=== PATIENT | female | born 1950 | race Hispanic/Latino ===

== ENCOUNTER 2017-08-07 22:52 | Emergency (ER) | payer MEDICARE, OTHER ==
[2017-08-07] MEDS ORDERED: ACETAMINOPHEN EXTRA STRENGTH 500 MG TABLET ONE (23:45)
== END 2017-08-07 23:53 | disposition home or self-care (01) ==
LOC: EDH 22:52
DX: S93.401A Sprain of unspecified ligament of right ankle, initial encounter (principal); E11.9 Type 2 diabetes mellitus without complications; I10 Essential (primary) hypertension; E78.5 Hyperlipidemia, unspecified; Z98.51 Tubal ligation status; Z90.49 Acquired absence of other specified parts of digestive tract
CPT/HCPCS: 73610

== ENCOUNTER 2018-06-03 21:08 | Emergency (ER) | payer MEDICARE, OTHER ==
[2018-06-03] MEDS ORDERED: TRAMADOL HCL 50 MG TABLET ONE (22:03)
== END 2018-06-03 23:49 | disposition home or self-care (01) ==
LOC: EDH 21:08
DX: S20.211A Contusion of right front wall of thorax, initial encounter (principal); E11.9 Type 2 diabetes mellitus without complications; I10 Essential (primary) hypertension; E78.5 Hyperlipidemia, unspecified; Z98.51 Tubal ligation status; Z90.49 Acquired absence of other specified parts of digestive tract; Z98.890 Other specified postprocedural states; X58.XXXA Exposure to other specified factors, initial encounter; Y93.89 Activity, other specified; Y92.89 Other specified places as the place of occurrence of the external cause; Y99.8 Other external cause status
CPT/HCPCS: 71045; 71100; 93005; 99291

== ENCOUNTER → 2018-12-13 | Outpatient (CLI) | payer MEDICARE, OTHER | END | disposition home or self-care (01) | LOC: RAH 13:26 | PROVIDERS: ATTEND Family Medicine | DX: Z12.31 Encounter for screening mammogram for malignant neoplasm of breast (principal) | CPT/HCPCS: 77067 ==

== ENCOUNTER 2019-07-30 20:04 | Emergency (ER) | payer MEDICARE, OTHER ==
[2019-07-30] MEDS ORDERED: ACETAMINOPHEN 325 MG TAB ONE (20:48)
== END 2019-07-30 21:20 | disposition home or self-care (01) ==
LOC: EDH 20:04
DX: S63.592A Other specified sprain of left wrist, initial encounter (principal); E11.9 Type 2 diabetes mellitus without complications; E78.5 Hyperlipidemia, unspecified; I10 Essential (primary) hypertension; Z90.49 Acquired absence of other specified parts of digestive tract; Z98.890 Other specified postprocedural states; V49.49XA Driver injured in collision with other motor vehicles in traffic accident, initial encounter; Y93.89 Activity, other specified; Y92.89 Other specified places as the place of occurrence of the external cause; Y99.8 Other external cause status
CPT/HCPCS: 71046; 73110

== ENCOUNTER 2020-03-02 12:22 | Emergency (ER) | payer MEDICARE ==
[2020-03-02] MEDS ORDERED: SODIUM CHLORIDE 0.9% 1000ML 1,000 ML IV ONE (12:23)
[2020-03-02] MEDS ORDERED: ONDANSETRON HCL 4 MG/2 ML VIAL ONE (12:45)
[2020-03-02 12:56] LABS: BASOPHILS % (AUTO) 0.6 % (0.0-5.0); EOSINOPHILS % (AUTO) 1.8 % (0.0-8.0); HEMATOCRIT 38.7 % (36-48); LYMPHOCYTES % (AUTO) 23.7 % (21.0-51.0); MEAN CORPUSCULAR HEMOGLOBIN 30.9 pg (27.0-33.0); MEAN CORPUSCULAR HGB CONC 33.6 g/dL (32.0-36.0); MEAN CORPUSCULAR VOLUME 91.9 fL (79-99); MONOCYTES % (AUTO) 6.5 % (3.0-13.0); NEUTROPHILS % (AUTO) 67.2 % (40.0-77.0); PLATELET COUNT (AUTO) 121 K/uL (130-400); RED BLOOD CELL COUNT(AUTO) 4.21 MIL/uL (4.00-5.50); WHITE BLOOD COUNT (AUTO) 5.1 K/uL (4.8-10.8)
[2020-03-02 13:22] LABS: ALBUMIN 3.6 g/dL (3.5-5.0); BILIRUBIN,TOTAL 0.4 mg/dL (0.2-1.0); CREATININE 0.4 mg/dL (0.5-1.5); POTASSIUM 4.2 mmol/L (3.5-5.1); TOTAL PROTEIN, SERUM 6.6 g/dL (6.0-8.3)
[2020-03-02 13:37] LABS: INR 0.91 (0.85-1.15); PARTIAL THROMBOPLASTIN TIME 25.2 SEC (26.3-35.5); PROTHROMBIN TIME 9.9 SEC (9.6-11.6)
[2020-03-02] MEDS ORDERED: HYOSCYAMINE SULFATE 0.125 MG TAB.SUBL SL ONE (14:53)
[2020-03-02] MEDS ORDERED: FAMOTIDINE/PF 20 MG/2 ML VIAL IV ONE (14:54)
[2020-03-02 17:10] LABS: APPEARANCE,URINE Clear (CLEAR); BILIRUBIN,URINE Negative (NEGATIVE); COLOR,URINE Yellow (YELLOW); GLUCOSE, URINE (UA) >=1000 mg/dL (NEGATIVE); KETONES,URINE Trace mg/dL (NEGATIVE); LEUKOCYTE ESTERASE ,URINE Negative (NEGATIVE); NITRATE,URINE Negative (NEGATIVE); OCCULT BLOOD,URINE Negative (NEGATIVE); PH,URINE 5.5 (5.0-8.0); PROTEIN,URINE Negative (NEGATIVE); UROBILINOGEN,URINE 0.2 mg/dL (0.2-1.0)
[2020-03-02 17:17] LABS: BACTERIA,URINE Rare /HPF (None Seen); RBC,URINE 0-1 /HPF (0-1); SQUAMOUS EPITHELIAL CELL,UR Rare /HPF (0-2); WBC,URINE 0-1 /HPF (0-1); YEAST,URINE BUDDING Few /HPF (None Seen)
== END 2020-03-02 16:20 | disposition home or self-care (01) ==
LOC: EDH 12:22
DX: R11.0 Nausea (principal); E11.9 Type 2 diabetes mellitus without complications; E78.5 Hyperlipidemia, unspecified; I10 Essential (primary) hypertension; Z90.49 Acquired absence of other specified parts of digestive tract; Z98.890 Other specified postprocedural states
CPT/HCPCS: 36415; 71045; 80053; 81001; 82550; 83690; 84484 ×2; 85025; 85610; 85730; 93005 ×2; 96374; 96375; 99285; J2405; J3490; J7030

== ENCOUNTER 2021-06-01 00:48 | Inpatient (IN) | payer MEDICARE ==
[~2021-06-01] VITALS: Ht 160 cm; Wt 43.5 kg
[2021-06-01 01:16] LABS: APPEARANCE,URINE Clear (CLEAR); BILIRUBIN,URINE Negative (NEGATIVE); COLOR,URINE Yellow (YELLOW); GLUCOSE, URINE (UA) >=1000 mg/dL (NEGATIVE); KETONES,URINE Negative (NEGATIVE); LEUKOCYTE ESTERASE ,URINE Negative (NEGATIVE); NITRATE,URINE Negative (NEGATIVE); OCCULT BLOOD,URINE Negative (NEGATIVE); PH,URINE 6.5 (5.0-8.0); PROTEIN,URINE Negative (NEGATIVE); UROBILINOGEN,URINE 0.2 mg/dL (0.2-1.0)
[2021-06-01 01:26] LABS: BACTERIA,URINE Rare /HPF (None Seen); RBC,URINE 0-1 /HPF (0-1); SQUAMOUS EPITHELIAL CELL,UR 0-2 /HPF (0-2); WBC,URINE None Seen /HPF (0-1)
[2021-06-01] MEDS ORDERED: DILTIAZEM 125 MG/25 ML INJ 125 MG in 0.9%NACL 100ML 100 ML IV SCH (01:30)
[2021-06-01] MEDS ORDERED: LACTATED RINGERS 1000ML 1,000 ML IV ONE (01:30)
[2021-06-01] MEDS ORDERED: DILTIAZEM 50MG VIAL IV ONE (01:36)
[2021-06-01] MEDS ORDERED: 0.9% NACL 500ML IV.SOLN 500 ML IV ONE ×2 (01:37→03:51)
[2021-06-01 01:38] LABS: BASOPHILS % (AUTO) 0.6 % (0.0-5.0); HEMATOCRIT 41.8 % (36-48); LYMPHOCYTES % (AUTO) 18.6 % (21.0-51.0); MEAN CORPUSCULAR HEMOGLOBIN 31.3 pg (27.0-33.0); MEAN CORPUSCULAR HGB CONC 33.5 g/dL (32.0-36.0); MEAN CORPUSCULAR VOLUME 93.3 fL (79-99); MONOCYTES % (AUTO) 6.2 % (3.0-13.0); NEUTROPHILS % (AUTO) 73.5 % (40.0-77.0); PLATELET COUNT (AUTO) 166 K/uL (130-400); RED BLOOD CELL COUNT(AUTO) 4.48 MIL/uL (4.00-5.50); RED CELL DISTRIBUTION WIDTH 12.5 % (11.0-15.5); WHITE BLOOD COUNT (AUTO) 8.2 K/uL (4.8-10.8)
[2021-06-01 01:58] LABS: CREATININE 0.6 mg/dL (0.5-1.5); POTASSIUM 4.5 mmol/L (3.5-5.1)
[2021-06-01 02:10] LABS: ALBUMIN 3.8 g/dL (3.5-5.0); BILIRUBIN,TOTAL 0.5 mg/dL (0.2-1.0); TOTAL PROTEIN, SERUM 7.8 g/dL (6.0-8.3)
[2021-06-01 02:18] LABS: PHOSPHORUS 6.6 mg/dL (2.5-4.9); THYROID STIMULATING HORMONE 4.36 uIU/mL (0.36-3.74)
[2021-06-01 02:26] LABS: INR 0.99 (0.85-1.15); PROTHROMBIN TIME 10.8 SEC (9.6-11.6)
[2021-06-01 02:28] LABS: PARTIAL THROMBOPLASTIN TIME 21.6 SEC (26.3-35.5)
[2021-06-01] MEDS ORDERED: AMIODARONE 150MG VIAL ONE ×2 (03:56→04:06)
[2021-06-01] MEDS ORDERED: ACETAMINOPHEN 325 MG TAB PO PRN ×2 (04:30)
[2021-06-01] MEDS ORDERED: ONDANSETRON 4MG TABLET PO PRN (04:30)
[2021-06-01] MEDS ORDERED: AMIODARONE 900MG VIAL 900 MG in DEXTROSE 5%-WATER 500 ML IV SCH (04:30)
[2021-06-01 06:36] VITALS: BP 97/59
[2021-06-01 06:40] LABS: MEAN CORPUSCULAR HEMOGLOBIN 30.6 pg (27.0-33.0); MEAN CORPUSCULAR HGB CONC 32.9 g/dL (32.0-36.0); MEAN CORPUSCULAR VOLUME 93.1 fL (79-99); RED BLOOD CELL COUNT(AUTO) 4.08 MIL/uL (4.00-5.50); RED CELL DISTRIBUTION WIDTH 12.5 % (11.0-15.5); WHITE BLOOD COUNT (AUTO) 7.1 K/uL (4.8-10.8)
[2021-06-01 07:02] LABS: CREATININE 0.5 mg/dL (0.5-1.5); MAGNESIUM 1.7 mg/dL (1.80-2.40); POTASSIUM 3.7 mmol/L (3.5-5.1)
[2021-06-01 08:57] VITALS: BP 92/59
[2021-06-01] MEDS: ENOXAPARIN SODIUM 30 MG/0.3 ML SQ SCH (09:01)
[2021-06-01 12:40] VITALS: BP 136/73
[2021-06-01 16:53] VITALS: BP 108/63
[2021-06-01] MEDS ORDERED: DEXTROSE 50%-WATER 50 ML DISP.SYRIN IV PRN (18:30)
[2021-06-01] MEDS ORDERED: GLUCAGON 1MG KIT 1 MG ML IM PRN (18:30)
[2021-06-01] MEDS ORDERED: [UNRECOGNIZED DRUG - REMARK] MISC SCH (19:00)
[2021-06-01 19:48] VITALS: BP 148/69
[2021-06-01] MEDS: METOPROLOL TARTRATE 25 MG TAB PO SCH (20:49)
[2021-06-01] MEDS: INSULIN HUMULIN R 100 UNIT/ML 3ML SQ SCH (20:56)
[2021-06-01] MEDS ORDERED: APIXABAN 5 MG TABLET PO SCH (21:00)
[2021-06-02 00:13] VITALS: BP 107/56
[2021-06-02 04:05] VITALS: BP 102/62
[2021-06-02 04:36] LABS: MEAN CORPUSCULAR HEMOGLOBIN 30.9 pg (27.0-33.0); MEAN CORPUSCULAR HGB CONC 33.2 g/dL (32.0-36.0); MEAN CORPUSCULAR VOLUME 92.9 fL (79-99); RED BLOOD CELL COUNT(AUTO) 3.66 MIL/uL (4.00-5.50); RED CELL DISTRIBUTION WIDTH 12.4 % (11.0-15.5); WHITE BLOOD COUNT (AUTO) 6.1 K/uL (4.8-10.8)
[2021-06-02 05:02] LABS: ALBUMIN 2.9 g/dL (3.5-5.0); BILIRUBIN,DIRECT 0.1 mg/dL (0.0-0.3); BILIRUBIN,TOTAL 0.2 mg/dL (0.2-1.0); CREATININE 0.5 mg/dL (0.5-1.5); POTASSIUM 3.1 mmol/L (3.5-5.1)
[2021-06-02 05:25] LABS: THYROID STIMULATING HORMONE 1.19 uIU/mL (0.36-3.74)
[2021-06-02] MEDS: INSULIN HUMULIN R 100 UNIT/ML 3ML SQ SCH ×4 (07:30→19:59)
[2021-06-02] MEDS ORDERED: POTASSIUM CHLORIDE 20MEQ/100ML 100 ML IV PRN (08:00)
[2021-06-02] MEDS ORDERED: POTASSIUM CHLORIDE 10% ELIXIR 20 MEQ/15 ML UDCUP PO PRN (08:00)
[2021-06-02 08:30] VITALS: BP 113/60
[2021-06-02] MEDS: KCL 20 MEQ ERTAB PO PRN ×3 (09:10→18:21)
[2021-06-02] MEDS: AMIODARONE 200 MG TABLET PO SCH ×2 (09:10→19:38)
[2021-06-02] MEDS: ENOXAPARIN SODIUM 30 MG/0.3 ML SQ SCH (09:10)
[2021-06-02] MEDS: METOPROLOL TARTRATE 25 MG TAB PO SCH ×2 (09:11→19:38)
[2021-06-02] MEDS: APIXABAN 5 MG TABLET PO SCH ×2 (10:23→19:38)
[2021-06-02] MEDS ORDERED: APIXABAN 5 MG TABLET PO ONE (10:30)
[2021-06-02 12:49] VITALS: BP 132/70
[2021-06-02 16:30] VITALS: BP 126/72
[2021-06-02 20:00] VITALS: BP 143/70
[2021-06-03] VITALS: BP 130/70
[2021-06-03 04:00] VITALS: BP 105/61
[2021-06-03 04:08] LABS: HEMATOCRIT 36.4 % (36-48); MEAN CORPUSCULAR HEMOGLOBIN 30.5 pg (27.0-33.0); MEAN CORPUSCULAR HGB CONC 33.5 g/dL (32.0-36.0); RED CELL DISTRIBUTION WIDTH 12.3 % (11.0-15.5); WHITE BLOOD COUNT (AUTO) 5.4 K/uL (4.8-10.8)
[2021-06-03 04:20] LABS: CREATININE 0.4 mg/dL (0.5-1.5); MAGNESIUM 1.8 mg/dL (1.80-2.40); POTASSIUM 3.9 mmol/L (3.5-5.1)
[2021-06-03] MEDS: INSULIN HUMULIN R 100 UNIT/ML 3ML SQ SCH ×2 (06:09→11:21)
[2021-06-03] MEDS: APIXABAN 5 MG TABLET PO SCH (07:52)
[2021-06-03] MEDS: METOPROLOL TARTRATE 25 MG TAB PO SCH (07:52)
[2021-06-03] MEDS: AMIODARONE 200 MG TABLET PO SCH (07:52)
[2021-06-03 08:00] VITALS: BP 125/67
[2021-06-03] MEDS ORDERED: AEC81 PO (09:37)
[2021-06-03] MEDS ORDERED: PIOG30TA70 PO (09:37)
[2021-06-03] MEDS ORDERED: METF-526 PO (09:37)
[2021-06-03] MEDS ORDERED: ROSU40TA21 PO (09:37)
[2021-06-03] MEDS ORDERED: LISI40TA9 PO (09:37)
[2021-06-03 11:30] VITALS: BP 119/68
== END 2021-06-03 14:10 | disposition home or self-care (01) | DRG 310 ==
LOC: EDH 00:48 → EDHIP 03:41 → 4DH 05:50
PROVIDERS: ADMIT Internal Medicine Infectious Disease; ATTEND Internal Medicine Infectious Disease
PROC: B246ZZZ Ultrasonography of Right and Left Heart (ICD-10-PCS; principal; 2021-06-02)
DX: I48.19 Other persistent atrial fibrillation (principal); H53.2 Diplopia; M10.9 Gout, unspecified; I10 Essential (primary) hypertension; E10.65 Type 1 diabetes mellitus with hyperglycemia; I95.9 Hypotension, unspecified; G51.0 Bell's palsy; R53.81 Other malaise; E78.5 Hyperlipidemia, unspecified; Z79.82 Long term (current) use of aspirin; Z79.4 Long term (current) use of insulin; Z90.49 Acquired absence of other specified parts of digestive tract; Z83.3 Family history of diabetes mellitus
CPT/HCPCS: 36415; 70450; 70551; 71045; 80048; 80053; 80061; 80076; 81001; 82550; 82948; 83036; 83605; 83690; 83735; 83880; 84100; 84439; 84443; 84484; 85025; 85027; 85610; 85730; 93005; 93306; 93880; 99291; G0378; J0282; J1650; J1815; J3490; J7040; J7060

== ENCOUNTER 2022-06-13 12:53 | Emergency (ER) | payer MEDICARE ==
[~2022-06-13] VITALS: Ht 157.5 cm; Wt 54.4 kg
[~2022-06-13 12:53] MED LIST: AEC81 PO; METF-526 PO; PIOG30TA70 PO
[2022-06-13 12:56] VITALS: BP 95/75
[2022-06-13] MEDS ORDERED: BENZ-39 PO (14:24)
[2022-06-13] MEDS ORDERED: MOLN200C PO (14:24)
== END 2022-06-13 14:43 | disposition home or self-care (01) ==
LOC: EDH 12:53
DX: U07.1 COVID-19 (principal); I10 Essential (primary) hypertension; E10.9 Type 1 diabetes mellitus without complications; Z79.82 Long term (current) use of aspirin; Z79.84 Long term (current) use of oral hypoglycemic drugs; Z79.899 Other long term (current) drug therapy; Z98.890 Other specified postprocedural states
CPT/HCPCS: 99283; 87635; 87880; 87804 ×2; C9803

== ENCOUNTER 2022-06-30 19:03 | Observation (INO) | payer MEDICARE ==
[~2022-06-30] VITALS: Ht 152.4 cm; Wt 46.7 kg
[~2022-06-30 19:03] MED LIST changes: +BENZ-39 PO; +MOLN200C PO
[2022-06-30 20:05] LABS: HEMATOCRIT 38.4 % (36-48); MEAN CORPUSCULAR HEMOGLOBIN 29.7 pg (27.0-33.0); MEAN CORPUSCULAR HGB CONC 32.8 g/dL (32.0-36.0); MEAN CORPUSCULAR VOLUME 90.6 fL (79-99); PLATELET COUNT (AUTO) 157 K/uL (130-400); RED BLOOD CELL COUNT(AUTO) 4.24 MIL/uL (4.00-5.50); RED CELL DISTRIBUTION WIDTH 12.9 % (11.0-15.5); WHITE BLOOD COUNT (AUTO) 6.1 K/uL (4.8-10.8)
[2022-06-30 20:16] LABS: APPEARANCE,URINE CLEAR (CLEAR); BILIRUBIN,URINE NEGATIVE (NEGATIVE); COLOR,URINE LIGHT-YELLOW (YELLOW); GLUCOSE, URINE (UA) >=1000 mg/dL (NEGATIVE); KETONES,URINE NEGATIVE (NEGATIVE); LEUKOCYTE ESTERASE ,URINE NEGATIVE Leu/uL (NEGATIVE); NITRATE,URINE NEGATIVE (NEGATIVE); OCCULT BLOOD,URINE NEGATIVE (NEGATIVE); PH,URINE 6.5 (5.0-8.0); PROTEIN,URINE NEGATIVE (NEGATIVE); UROBILINOGEN,URINE 0.2 mg/dL (0.2-1.0)
[2022-06-30 20:16] LABS: POTASSIUM 3.8 mmol/L (3.5-5.1)
[2022-06-30 20:17] LABS: BACTERIA,URINE RARE /HPF (None Seen); RBC,URINE 0-1 /HPF (0-1); SQUAMOUS EPITHELIAL CELL,UR RARE /HPF (0-2); WBC,URINE 0-1 /HPF (0-1)
[2022-06-30 20:21] LABS: ALBUMIN 3.4 g/dL (3.5-5.0); BASOPHILS % (AUTO) 0.7 % (0.0-5.0); LYMPHOCYTES % (AUTO) 24.8 % (21.0-51.0); MONOCYTES % (AUTO) 8.8 % (3.0-13.0); NEUTROPHILS % (AUTO) 63.5 % (40.0-77.0)
[2022-06-30] MEDS ORDERED: LACTATED RINGERS 1000ML 1,000 ML IV SCH (22:00)
[2022-06-30] MEDS ORDERED: ONDANSETRON 4MG INJ IVP PRN (22:00)
[2022-06-30] MEDS ORDERED: ACETAMINOPHEN 650 MG SUPPOSITORY RC PRN (22:00)
[2022-06-30] MEDS ORDERED: ACETAMINOPHEN 325 MG TAB PO PRN (22:00)
[2022-07-01] MEDS: INSULIN HUMULIN R 100 UNIT/ML 3ML SQ SCH ×4 (06:56→21:00)
[2022-07-01 08:38] VITALS: BP 141/68
[2022-07-01] MEDS: ASPIRIN 81MG CHEW TAB PO SCH (08:49)
[2022-07-01 08:53] LABS: HEMATOCRIT 35.5 % (36-48); MEAN CORPUSCULAR HEMOGLOBIN 30.1 pg (27.0-33.0); MEAN CORPUSCULAR HGB CONC 32.4 g/dL (32.0-36.0); MEAN CORPUSCULAR VOLUME 92.9 fL (79-99); RED BLOOD CELL COUNT(AUTO) 3.82 MIL/uL (4.00-5.50); WHITE BLOOD COUNT (AUTO) 5.6 K/uL (4.8-10.8)
[2022-07-01] MEDS ORDERED: ENOXAPARIN SODIUM 30 MG/0.3 ML SQ SCH (09:00)
[2022-07-01 09:08] LABS: CHOLESTEROL 168 mg/dL (<200); HDL CHOLESTEROL 59 mg/dL (35-85); LDL DIRECT 95 mg/dL (0-99); TRIGLYCERIDES 93 mg/dL (30-200)
[2022-07-01 09:23] LABS: CREATININE 0.5 mg/dL (0.5-1.5); MAGNESIUM 1.8 mg/dL (1.80-2.40); PHOSPHORUS 4.1 mg/dL (2.5-4.9); THYROID STIMULATING HORMONE 1.36 uIU/mL (0.36-3.74)
[2022-07-01 12:35] VITALS: BP 143/67
[2022-07-01] MEDS ORDERED: INSU100I3 SQ (13:56)
[2022-07-01] MEDS ORDERED: ROSU40TA21 PO (13:56)
[2022-07-01] MEDS ORDERED: APIX5TAB PO (13:56)
[2022-07-01] MEDS ORDERED: INSU100I47 SQ (13:56)
[2022-07-01] MEDS ORDERED: INSU100I24 SQ (13:56)
[2022-07-01] MEDS ORDERED: LISI5TAB21 PO (13:56)
[2022-07-01] MEDS ORDERED: EMPA25TA PO (13:56)
[2022-07-01] MEDS ORDERED: METO25 PO (13:56)
[2022-07-01] MEDS ORDERED: PHARMACY COMMUNICATION MISC SCH ×3 (15:30→16:30)
[2022-07-01 15:50] LABS: HEMOGLOBIN A1C 8.7 % (4.0-6.0)
[2022-07-01 16:30] VITALS: BP 147/70
[2022-07-01] MEDS ORDERED: IOHEXOL 350 MG/ML 100ML INFUS..BTL IV ONE (19:07)
[2022-07-01 19:21] VITALS: BP 155/69
[2022-07-01] MEDS ORDERED: SIMVASTATIN 20 MG TABLET PO SCH (21:00)
[2022-07-01] MEDS: METOPROLOL TARTRATE 25 MG TAB PO SCH (22:34)
[2022-07-02 00:21] VITALS: BP 139/61
[2022-07-02 03:21] VITALS: BP 106/59
[2022-07-02] MEDS: INSULIN HUMULIN R 100 UNIT/ML 3ML SQ SCH ×2 (07:30→11:30)
[2022-07-02] MEDS: ASPIRIN 81MG CHEW TAB PO SCH (07:47)
[2022-07-02] MEDS: METOPROLOL TARTRATE 25 MG TAB PO SCH (07:48)
[2022-07-02 08:00] VITALS: BP 126/61
[2022-07-02] MEDS ORDERED: ROSUVASTATIN CALCIUM 40 MG PO SCH (09:00)
[2022-07-02] MEDS ORDERED: LISINOPRIL 5 MG TABLET PO SCH (09:00)
[2022-07-02] MEDS ORDERED: EMPAGLIFLOZIN 25MG TABLET PO SCH ×2 (09:00)
[2022-07-02] MEDS ORDERED: APIXABAN 5 MG TABLET PO SCH (09:00)
[2022-07-02] MEDS ORDERED: INSU100V37 SQ (11:58)
[2022-07-02 12:00] VITALS: BP 140/61
== END 2022-07-02 13:14 | disposition home or self-care (01) ==
LOC: EDH 19:03 → EDHIP 21:34 → 2AH 07-01 05:50
PROVIDERS: ADMIT Internal Medicine Pulmonary Disease; ATTEND Internal Medicine Pulmonary Disease
DX: E11.649 Type 2 diabetes mellitus with hypoglycemia without coma (principal); I10 Essential (primary) hypertension; I48.91 Unspecified atrial fibrillation; I24.9 Acute ischemic heart disease, unspecified; E88.09 Other disorders of plasma-protein metabolism, not elsewhere classified; Z79.82 Long term (current) use of aspirin; Z79.01 Long term (current) use of anticoagulants; Z79.4 Long term (current) use of insulin; Z79.899 Other long term (current) drug therapy
CPT/HCPCS: 99285; 82550 ×3; 83874 ×3; 84484 ×4; 80053; 85025; 82948 ×8; 81001; 36415 ×2; 71045; 93880; 93005; 96372; 96360; 96361; 83036; 84443; 83735; 84100; 80061; 80048; 83880; 85027; 85378; 71270; 74178; 93306; 97161; G0378 ×38; J1815 ×2; J7120; J1650; Q9967

== ENCOUNTER 2022-07-30 10:37 | Emergency (ER) | payer MEDICARE ==
[~2022-07-30] VITALS: Ht 152.4 cm; Wt 45.4 kg
[~2022-07-30 10:37] MED LIST changes: -AEC81 PO; +APIX5TAB PO; -BENZ-39 PO; +EMPA25TA PO; +INSU100V37 SQ; +LISI5TAB21 PO; -METF-526 PO; +METO25 PO; -MOLN200C PO; -PIOG30TA70 PO; +ROSU40TA21 PO
[2022-07-30] MEDS ORDERED: CYCL10TA16 PO (12:30)
[2022-07-30] MEDS ORDERED: IBUPROFEN 600 MG TABLET PO SCH (12:30)
[2022-07-30 12:34] VITALS: BP 148/66
== END 2022-07-30 12:45 | disposition home or self-care (01) ==
LOC: EDH 10:37
DX: R07.81 Pleurodynia (principal); E11.9 Type 2 diabetes mellitus without complications; I10 Essential (primary) hypertension; Z79.899 Other long term (current) drug therapy; Z90.49 Acquired absence of other specified parts of digestive tract; Z79.84 Long term (current) use of oral hypoglycemic drugs; W18.39XA Other fall on same level, initial encounter; Y93.01 Activity, walking, marching and hiking; Y92.89 Other specified places as the place of occurrence of the external cause; Y99.8 Other external cause status
CPT/HCPCS: 71100

== ENCOUNTER 2022-09-09 18:16 | Emergency (ER) | payer MEDICARE ==
[~2022-09-09] VITALS: Ht 152.4 cm; Wt 51.7 kg
[~2022-09-09 18:16] MED LIST changes: +CYCL10TA16 PO
[2022-09-09 21:09] VITALS: BP 115/68
== END 2022-09-09 21:14 | disposition home or self-care (01) ==
LOC: EDH 18:16
DX: J02.9 Acute pharyngitis, unspecified (principal); E11.9 Type 2 diabetes mellitus without complications; I10 Essential (primary) hypertension; E78.00 Pure hypercholesterolemia, unspecified; Z20.822 Contact with and (suspected) exposure to COVID-19; Z90.49 Acquired absence of other specified parts of digestive tract; Z98.890 Other specified postprocedural states; Z79.899 Other long term (current) drug therapy
CPT/HCPCS: 99283; 87635; 87880; 87804 ×2; C9803

== ENCOUNTER 2023-03-14 21:07 | Emergency (ER) | payer MEDICARE ==
[~2023-03-14] VITALS: Ht 152.4 cm; Wt 56.2 kg
[2023-03-14 22:00] LABS: MEAN CORPUSCULAR HEMOGLOBIN 29.8 pg (27.0-33.0); MEAN CORPUSCULAR HGB CONC 32.6 g/dL (32.0-36.0); MEAN CORPUSCULAR VOLUME 91.3 fL (79-99); PLATELET COUNT (AUTO) 146 K/uL (130-400); RED BLOOD CELL COUNT(AUTO) 4.16 MIL/uL (4.00-5.50); RED CELL DISTRIBUTION WIDTH 13.1 % (11.0-15.5); WHITE BLOOD COUNT (AUTO) 7.4 K/uL (4.8-10.8)
[2023-03-14 22:15] LABS: CREATININE 0.7 mg/dL (0.5-1.5); POTASSIUM 3.5 mmol/L (3.5-5.1)
[2023-03-14 22:16] LABS: BASOPHILS # (AUTO) 0.02 K/uL (0.00-0.20); BASOPHILS % (AUTO) 0.3 % (0.0-5.0); EOSINOPHILS # (AUTO) 0.12 K/uL (0.00-0.70); EOSINOPHILS % (AUTO) 1.6 % (0.0-8.0); IMMATURE GRANULOCYTE ABSOLUTE 0.02 K/uL (0-1); MONOCYTES # (AUTO) 0.7 K/uL (0.1-1.0); MONOCYTES % (AUTO) 9.3 % (3.0-13.0); NEUTROPHILS # (AUTO) 5.5 K/uL (1.8-7.7); NEUTROPHILS % (AUTO) 74.5 % (40.0-77.0)
[2023-03-14 22:20] LABS: ALBUMIN 3.5 g/dL (3.5-5.0); BILIRUBIN,TOTAL 0.2 mg/dL (0.2-1.0)
[2023-03-14 23:14] LABS: ADD UA MICROSCOPIC YES; APPEARANCE,URINE CLEAR (CLEAR); BILIRUBIN,URINE NEGATIVE (NEGATIVE); COLOR,URINE LIGHT-YELLOW (YELLOW); GLUCOSE, URINE (UA) >=1000 mg/dL (NEGATIVE); KETONES,URINE NEGATIVE (NEGATIVE); LEUKOCYTE ESTERASE ,URINE 25 Leu/uL (NEGATIVE); NITRATE,URINE NEGATIVE (NEGATIVE); OCCULT BLOOD,URINE NEGATIVE (NEGATIVE); PH,URINE 5.5 (5.0-8.0); PROTEIN,URINE 10 mg/dL (NEGATIVE); UROBILINOGEN,URINE 0.2 mg/dL (0.2-1.0)
[2023-03-14 23:15] LABS: MUCUS,URINE RARE LPF (None Seen); SQUAMOUS EPITHELIAL CELL,UR FEW /HPF (0-2)
[2023-03-14] MEDS ORDERED: CEPH500C2 PO (23:39)
[2023-03-15] MEDS ORDERED: CLONIDINE HCL 0.2 MG TABLET PO ONE
[2023-03-15] MEDS ORDERED: CEFTRIAXONE 2GM VIAL IVPB ONE
[2023-03-15 02:18] VITALS: BP 155/63; PULSE 65; RESP 14; O2SAT 98
== END 2023-03-15 02:31 | disposition home or self-care (01) ==
LOC: EDH 21:07
DX: N39.0 Urinary tract infection, site not specified (principal); I10 Essential (primary) hypertension; E11.9 Type 2 diabetes mellitus without complications; E78.00 Pure hypercholesterolemia, unspecified; Z79.899 Other long term (current) drug therapy; Z90.49 Acquired absence of other specified parts of digestive tract; Z98.890 Other specified postprocedural states
CPT/HCPCS: 99284; 96365; 84484; 80053; 85025; 87077; 87088; 87186; 82948 ×2; 81001; 36415; 93005; J0696

== ENCOUNTER 2023-08-22 19:12 | Emergency (ER) | payer MEDICARE ==
[~2023-08-22] VITALS: Ht 152.4 cm; Wt 56.7 kg
[~2023-08-22 19:12] MED LIST changes: +CEPH500C2 PO
[2023-08-22 20:05] VITALS: BP 171/76; PULSE 78; RESP 18
[2023-08-22] MEDS: IBUPROFEN 600 MG TABLET ONE (20:34)
[2023-08-22] MEDS: IBUPROFEN 600 MG TABLET PO ONE (20:35)
[2023-08-22] MEDS ORDERED: IBUP-2070 PO (20:38)
== END 2023-08-22 20:48 | disposition home or self-care (01) ==
LOC: EDH 19:12
DX: S62.636A Displaced fracture of distal phalanx of right little finger, initial encounter for closed fracture (principal); S60.051A Contusion of right little finger without damage to nail, initial encounter; I10 Essential (primary) hypertension; E11.9 Type 2 diabetes mellitus without complications; E78.00 Pure hypercholesterolemia, unspecified; Z90.49 Acquired absence of other specified parts of digestive tract; Z79.899 Other long term (current) drug therapy; Z98.890 Other specified postprocedural states; Z88.8 Allergy status to other drugs, medicaments and biological substances; W18.39XA Other fall on same level, initial encounter; Y93.89 Activity, other specified; Y92.89 Other specified places as the place of occurrence of the external cause; Y99.8 Other external cause status
CPT/HCPCS: 29130; 73140

== ENCOUNTER 2024-04-24 16:56 | Emergency (ER) | payer OTHER, MEDICARE ==
[~2024-04-24] VITALS: Ht 152.4 cm; Wt 57.6 kg
[~2024-04-24 16:56] MED LIST changes: +IBUP-2070 PO; -ROSU40TA21 PO; +ROSU40TA88 PO
[2024-04-24 18:15] LABS: BASOPHILS # (AUTO) 0.01 K/uL (0.00-0.20); BASOPHILS % (AUTO) 0.1 % (0.0-5.0); EOSINOPHILS # (AUTO) 0.13 K/uL (0.00-0.70); EOSINOPHILS % (AUTO) 1.4 % (0.0-8.0); HEMATOCRIT 40.4 % (36-48); IMMATURE GRANULOCYTE ABSOLUTE 0.03 K/uL (0-1); LYMPHOCYTES # (AUTO) 0.8 K/uL (1.0-4.8); MEAN CORPUSCULAR HEMOGLOBIN 30.2 pg (27.0-33.0); MEAN CORPUSCULAR HGB CONC 32.7 g/dL (32.0-36.0); MEAN CORPUSCULAR VOLUME 92.4 fL (79-99); MONOCYTES # (AUTO) 0.5 K/uL (0.1-1.0); MONOCYTES % (AUTO) 5.8 % (3.0-13.0); NEUTROPHILS # (AUTO) 7.7 K/uL (1.8-7.7); NEUTROPHILS % (AUTO) 83.4 % (40.0-77.0); PLATELET COUNT (AUTO) 189 K/uL (130-400); RED BLOOD CELL COUNT(AUTO) 4.37 MIL/uL (4.00-5.50); RED CELL DISTRIBUTION WIDTH 13.2 % (11.0-15.5); WHITE BLOOD COUNT (AUTO) 9.2 K/uL (4.8-10.8)
[2024-04-24] MEDS: 0.9%NACL 1000ML 1,000 ML IV ONE (18:16)
[2024-04-24 18:28] LABS: CREATININE 0.9 mg/dL (0.5-1.0); POTASSIUM 4.2 mmol/L (3.5-5.1)
[2024-04-24 18:32] LABS: ALBUMIN 3.5 g/dL (3.5-5.0); BILIRUBIN,DIRECT 0.1 mg/dL (0.0-0.3); BILIRUBIN,TOTAL 0.6 mg/dL (0.2-1.0)
[2024-04-24 19:37] VITALS: BP 124/62; PULSE 78; RESP 20; TEMP 98.4; O2SAT 99
[2024-04-24 19:43] LABS: ADD UA MICROSCOPIC YES; APPEARANCE,URINE CLOUDY (CLEAR); BILIRUBIN,URINE 0.5 mg/dL (NEGATIVE); COLOR,URINE YELLOW (YELLOW); GLUCOSE, URINE (UA) 70 mg/dL (NEGATIVE); KETONES,URINE 10 mg/dL (NEGATIVE); LEUKOCYTE ESTERASE ,URINE 75 Leu/uL (NEGATIVE); NITRATE,URINE NEGATIVE (NEGATIVE); OCCULT BLOOD,URINE SMALL (NEGATIVE); PH,URINE 5.5 (5.0-8.0); PROTEIN,URINE 600 mg/dL (NEGATIVE)
[2024-04-24 19:51] LABS: BACTERIA,URINE RARE /HPF (None Seen); HYALINE CASTS, URINE 26-50 /LPF (0-1 /LPF); MUCUS,URINE MANY LPF (None Seen); OTHER CASTS, URINE 12 /LPF (None Seen); SQUAMOUS EPITHELIAL CELL,UR FEW /HPF (0-2); UNCLASSIFIED CRYSTAL 1 /HPF (None Seen)
[2024-04-24] MEDS: cefTRIAXone 1G VIAL IVPB ONE (19:52)
[2024-04-24] MEDS ORDERED: NITR100C4 PO (19:56)
== END 2024-04-24 19:59 | disposition home or self-care (01) ==
LOC: EDH 16:56
DX: N39.0 Urinary tract infection, site not specified (principal); E87.1 Hypo-osmolality and hyponatremia; E87.8 Other disorders of electrolyte and fluid balance, not elsewhere classified; R19.7 Diarrhea, unspecified; E11.9 Type 2 diabetes mellitus without complications; E78.00 Pure hypercholesterolemia, unspecified; I10 Essential (primary) hypertension; Z79.01 Long term (current) use of anticoagulants; Z79.4 Long term (current) use of insulin; Z79.84 Long term (current) use of oral hypoglycemic drugs; Z79.899 Other long term (current) drug therapy; Z98.890 Other specified postprocedural states
CPT/HCPCS: 99283; 96374; 80076; 80048; 83690; 85025; 87086; 81001; 36415; J7030; J0696

== ENCOUNTER 2024-10-06 04:26 | Emergency (ER) | payer OTHER, MEDICARE ==
[~2024-10-06] VITALS: Ht 152.4 cm; Wt 56.7 kg
[~2024-10-06 04:26] MED LIST changes: +NITR100C4 PO
--- NOTE | 2024-10-06 04:31 | NUR ---
UA CUP PROVIDED
--- NOTE | 2024-10-06 04:47 | ERN ---
General Chief Complaint: Nausea,Vomiting,Diarrhea Stated Complaint: N/V/D Time Seen by MD: 04:40 Source: patient History of Present Illness Initial Comments 74-year-old female with hypertension diabetes and hypercholesterolemia with a prior allergy to shrimp that causes severe nausea vomiting and diarrhea. She comes in today with the same symptoms that started approximately 6 hours ago. Patient states that she had fish at a restaurant wonders if it is a shrimp contamination that is leading to her current symptoms. In either case she has had stomach pain watery diarrhea and nausea and vomiting. Allergies: Coded Allergies: No Known Drug Allergies (Unverified Allergy, 03/21/12) Uncoded Allergies: NKA (Allergy, 01/19/12) Home Meds Active Scripts Nitrofurantoin Monohyd/M-Cryst (Macrobid 100 mg Capsule) 100 Mg Capsule, 1 CAP PO BID for 5 Days, #10 CAP 0 Refills Prov:MELANI GIBBONS MD 04/24/24 Ibuprofen (Ibuprofen) 600 Mg Tablet, 600 MG PO Q6H PRN for PAIN, #20 TAB 0 Refills Prov:ALEX BONNER COOKING APPLIANCE REPAIR TECHNICIAN 08/22/23 Cephalexin (Cephalexin) 500 Mg Capsule, 500 MG PO Q6H, #56 CAP Prov:GEORGINA ARCE MD 03/14/23 Cyclobenzaprine HCl (Flexeril) 10 Mg Tab, 10 MG PO TID for 3 Days, #9 TAB Prov:GIANFRANCO NICHOLS [facility] 07/30/22 Insulin Degludec (Tresiba) 100 Unit/1 Ml Vial, 10 UNIT SQ DAILY for 30 Days, #1 VIAL Prov:JR BELTRE [facility] 07/02/22 Reported Medications Apixaban (Eliquis) 5 Mg Tablet, 5 MG PO DAILY, TAB 07/01/22 Empagliflozin (Jardiance) 25 Mg Tablet, 25 MG PO DAILY, TAB 07/01/22 Rosuvastatin Calcium (Rosuvastatin Calcium) 40 Mg Tablet, 1 TAB PO DAILY 07/01/22 Lisinopril (Lisinopril) 5 Mg Tablet, 1 TAB PO DAILY 07/01/22 Metoprolol Tartrate (Lopressor) 25 Mg Tab, 1 TAB PO BID 07/01/22 Past Medical History Past Medical History: Diabetes-Type II, High Cholesterol, Hypertension Medical History Other: POOIR HISTORIAN Past Surgical History: Cholecystectomy, Surgical History Other: BLADDER SUSPENSION, NECK, LEFT ARM Social History Social History: Negative, Lives with family Constitutional: (-) chills, (-) diaphoresis, (-) fever, (-) malaise, (-) weakness, (-) other documentation EENTM: (-) eye pain, (-) blurred vision, (-) tearing, (-) double vision, (-) ear pain, (-) ear discharge, (-) nose pain, (-) nose congestion, (-) throat pain, (-) Throat swelling, (-) mouth pain, (-) tooth pain, (-) mouth swelling, (-) other documentation Respiratory: (-) cough, (-) orthopnea, (-) short of breath, (-) stridor, (-) wheezing, (-) other documentation Cardiovascular: (-) chest pain, (-) edema, (-) palpitations, (-) syncope, (-) dyspnea on exertion, (-) other documentation Gastrointestinal/Abdominal: (+) nausea, (+) vomiting, (+) diarrhea, (+) abdominal pain, (+) abdominal distention Genitourinary: (-) vaginal discharge, (-) vaginal bleeding, (-) dysuria, (-) frequency, (-) hematuria, (-) pain, (-) other documentation Musculoskeletal: (-) Neck pain, (-) back pain, (-) Flank Pain, (-) joint pain, (-) joint swelling, (-) muscle pain, (-) muscle stiffness, (-) gout, (-) other documentation Skin: (-) laceration, (-) contusion, (-) abrasion, (-) abscess, (-) rash, (-) change in color, (-) change in hair, (-) change in nails, (-) diaphoresis, (-) dryness, (-) other documentation Neuro: (-) altered mental status, (-) headache, (-) syncope, (-) paralysis, (-) numbness, (-) seizure, (-) pre-existing deficit, (-) tremors, (-) weakness, (-) dizziness, (-) slurred speech, (-) vertigo, (-) other documentation Physical Exam General Appearance: (+) mild distress Orientation: (+) oriented x 3 Head/Face Trauma: No Eye: bilateral eye normal inspection, bilateral eye PERRL, bilateral eye EOMI Ear, Nose, Throat: (+) hearing grossly normal, (+) moist mucous membraine, (+) normal pharynx Neck: (+) normal inspection, (+) supple, (+) full range of motion Respiratory: (+) chest non-tender, (+) lungs clear, (+) well ventilated Heart: (+) regular, (+) no gallop Results Laboratory and Microbiology Lab and Micro Result Laboratory Tests Test 10/06/24 04:37 10/06/24 11:01 White Blood Count 8.3 K/uL (4.8-10.8) Red Blood Count 4.31 MIL/uL (4.00-5.50) Hemoglobin 13.0 g/dL (12.0-16.0) Hematocrit 40.2 % (36-48) Mean Corpuscular Volume 93.3 fL (79-99) Mean Corpuscular Hemoglobin 30.2 pg (27.0-33.0) Mean Corpuscular Hemoglobin Concent 32.3 g/dL (32.0-36.0) Red Cell Distribution Width 13.2 % (11.0-15.5) Platelet Count 156 K/uL (130-400) Mean Platelet Volume 10.5 fL (7.5-10.5) Immature Granulocyte % (Auto) 0.2 % (0-1) Neutrophils (%) (Auto) 73.7 % (40.0-77.0) Lymphocytes (%) (Auto) 16.5 % (21.0-51.0) L Monocytes (%) (Auto) 7.4 % (3.0-13.0) Eosinophils (%) (Auto) 1.7 % (0.0-8.0) Basophils (%) (Auto) 0.5 % (0.0-5.0) Neutrophils # (Auto) 6.1 K/uL (1.8-7.7) Lymphocytes # (Auto) 1.4 K/uL (1.0-4.8) Monocytes # (Auto) 0.6 K/uL (0.1-1.0) Eosinophils # (Auto) 0.14 K/uL (0.00-0.70) Basophils # (Auto) 0.04 K/uL (0.00-0.20) Absolute Immature Granulocyte (auto 0.02 K/uL (0-1) Nucleated Red Blood Cells 0.0 % (0.0-0.19) Sodium Level 145 mmol/L (136-145) Potassium Level 3.8 mmol/L (3.5-5.1) Chloride Level 104 mmol/L (101-111) Carbon Dioxide Level 31 mmol/L (21-32) Blood Urea Nitrogen 25 mg/dL (7-18) H Creatinine 0.9 mg/dL (0.5-1.0) Glomerular Filtration Rate Calc 68 mL/min (>90) Random Glucose 187 mg/dL (70-105) H Total Calcium 9.7 mg/dL (8.5-10.1) Total Bilirubin 0.5 mg/dL (0.2-1.0) Direct Bilirubin 0.1 mg/dL (0.0-0.3) Aspartate Amino Transf (AST/SGOT) 23 U/L (10-37) Alanine Aminotransferase (ALT/SGPT) 24 U/L (12-78) Alkaline Phosphatase 115 U/L (50-136) Total Protein 8.0 g/dL (6.0-8.3) Albumin 3.5 g/dL (3.5-5.0) Urine Color LIGHT-YELLOW (YELLOW) Urine Appearance CLEAR (CLEAR) Urine pH 6.0 (5.0-8.0) Urine Specific [place] 1.016 (1.001-1.031) Urine Protein 100 mg/dL (NEGATIVE) H Urine Glucose (UA) >=1000 mg/dL (NEGATIVE) H Urine Ketones NEGATIVE mg/dL (NEGATIVE) Urine Occult Blood +- (TRACE) (NEGATIVE) H Urine Nitrate NEGATIVE (NEGATIVE) Urine Bilirubin NEGATIVE mg/dL (NEGATIVE) Urine Urobilinogen 0.2 mg/dL (0.2-1.0) Urine Leukocyte Esterase 25 Soham/uL (NEGATIVE) H Urine RBC 2-5 /HPF (0-1) H Urine WBC 6-10 /HPF (0-1) H Urine Squamous Epithelial Cells FEW /HPF (0-2) Urine Bacteria None /HPF (None Seen) Urine Hyaline Casts 2-5 /LPF (0-1 /LPF) H Labs Reviewed?: Yes MDM Patient's symptoms sound suspicious the like food allergy although it could be gastroenteritis from a bacterial or viral infection. Her symptoms are really localized just to her GI tract. I will order a CBC chemistry panel and give her L of fluid. Patient's CBC is normal, as is her chemistry panel. She feels like the diarrhea is slowing down I gave her some Lomotil. She feels slightly better with a L of fluid. MDM: DIFFERENTIAL DIAGNOSIS: VIRAL GASTROENTERITIS, GASTROENTERITIS, FOOD POISONING, UTI, RATIONALE: TESTS CONSIDERED AND ORDERED SECONDARY TO SHARED DECISION MAKING INCLUDE: PATIENT IS A 72-YEAR-OLD FEMALE COMING IN TO BE EVALUATED FOR DIARRHEA AND VOMITING. PER PATIENT SHE DOES NOT HAVE ANY PAIN IN HIS STOMACH IN HIS HERE FOR EVALUATION. LABORATORY WORKUP POSITIVE FOR URINARY TRACT INFECTION. PATIENT RECEIVED IV FLUIDS FELT MUCH BETTER. PATIENT WILL BE DISCHARGED IN STABLE CONDITION WITH A SYMPTOMATIC MANAGEMENT. I DID ADVISED HER APPROPRIATE FOLLOW UP WITH PCP IN 1-2 DAYS. ED Course Orders Procedure Category Date Status Time Cbc With Differential LAB 10/06/24 Complete 04:47 Urinalysis Profile LAB 10/06/24 Complete 04:47 Lactated Ringers PHA 10/06/24 Complete 1000ml (Lactated 05:00 Ketorolac PHA 10/06/24 Complete Tromethamine 15mg/Ml 05:00 Ondansetron 4mg Inj PHA 10/06/24 Complete (Zofran 4mg Inj) 05:00 Basic Metabolic Panel LAB 10/06/24 Complete 04:47 Diphenoxylate PHA 10/06/24 Complete Hcl/Atropine (Lomotil) 07:00 Hepatic Function Panel LAB 10/06/24 Complete 07:41 *Nursing CPOE 10/06/24 Transmitted Communication: 08:56 Culture Urine MOHAN 10/06/24 Logged 11:44 Current Medications Medications (Trade) Dose Ordered Sig/Elda Route PRN Reason Start Time Stop Time Status Last Admin Dose Admin Diphenoxylate HCl/ Atropine (Lomotil) 1 tab ONCE ONCE PO 10/06/24 07:00 10/06/24 07:01 DC 10/06/24 07:00 Ketorolac Tromethamine (toRADol) 15 mg ONCE ONCE IV 10/06/24 05:00 10/06/24 05:01 DC 10/06/24 05:01 Lactated Ringer's 1,000 ml @ 0 mls/hr ONCE ONCE IV 10/06/24 05:00 10/06/24 05:01 DC 10/06/24 05:02 Ondansetron HCl (zoFRAN 4MG INJ) 4 mg ONCE ONCE IVP 10/06/24 05:00 10/06/24 05:01 DC 10/06/24 05:01 Vital Signs Date Time Temp Pulse Resp B/P (MAP) Pulse Ox O2 Delivery O2 Flow Rate FiO2 10/06/24 07:02 74 16 147/74 99 Room Air* 0 21 10/06/24 07:00 97.7 71 14 156/90 98 Room Air* 0 21 10/06/24 04:39 81 16 161/78 99 Room Air* 0 21 10/06/24 04:27 97.9 80 16 146/74 97 Room Air DX & DISP Disposition: Discharge Departure Impression: Primary Impression: Diarrhea Additional Impression: UTI (urinary tract infection) Condition: Stable Scripts Cephalexin Monohydrate (Keflex) 500 Mg Cap 1 CAP PO BID for 10 Days, #20 CAP 0 Refills Prov: LISA WALKER MD 10/06/24 Pantoprazole Sodium (Protonix) 40 Mg Ectab 1 TAB PO DAILY for 30 Days, #30 TAB 0 Refills Prov: LISA WALKER MD 10/06/24 Lactobacillus Acidophilus (Probiotic Acidophilus) 2 Billion Cell Tablet 1 TAB PO BID for 7 Days, #14 TAB 0 Refills Prov: LISA WALKER MD 10/06/24 Additional Instructions: FOLLOW-UP WITH PRIMARY CARE PROVIDER IN 1 TO 2 DAYS. TAKE MEDICATIONS DIRECTED HERE IN THE EMERGENCY ROOM. OKAY TO CONTINUE HOME MEDICATIONS UNLESS OTHERWISE DISCUSSED DURING YOUR VISIT IN THE EMERGENCY ROOM TODAY. RETURN TO YOUR NEAREST EMERGENCY ROOM IF SYMPTOMS WORSEN OR IF THERE IS NO IMPROVEMENT. CALL 911 IF YOU NEED IMMEDIATE ASSISTANCE. TAKE TYLENOL [id number] NEEDED AND IF NO CONTRAINDICATIONS ARE PRESENT. INCREASE ORAL HYDRATION. A WOUND CULTURE OR URINE CULTURE WAS ORDERED HERE IN THE EMERGENCY ROOM DEPARTMENT PLEASE FOLLOW-UP WITH PRIMARY CARE PROVIDER AND ADVISE THEM TO GET REPEAT PORTS FROM OUR FACILITY. IF YOU HAD ANY CORAL WRAP/SPLINTS THAT WERE APPLIED HERE, PLEASE DO NOT REMOVE THEM UNTIL YOU SEE YOUR PRIMARY CARE OR SPECIALTY. REFERRALS: Referrals: GABRIELLE MALAGON DO (PCP) Time of Disposition: 11:49 TRIP LEONARDO MD Oct 06, 2024 04:47 LISA WALKER MD Oct 06, 2024 11:50
[2024-10-06 04:57] LABS: CREATININE 0.9 mg/dL (0.5-1.0); POTASSIUM 3.8 mmol/L (3.5-5.1)
[2024-10-06 04:59] LABS: BASOPHILS # (AUTO) 0.04 K/uL (0.00-0.20); BASOPHILS % (AUTO) 0.5 % (0.0-5.0); EOSINOPHILS # (AUTO) 0.14 K/uL (0.00-0.70); EOSINOPHILS % (AUTO) 1.7 % (0.0-8.0); HEMATOCRIT 40.2 % (36-48); IMMATURE GRANULOCYTE ABSOLUTE 0.02 K/uL (0-1); LYMPHOCYTES # (AUTO) 1.4 K/uL (1.0-4.8); LYMPHOCYTES % (AUTO) 16.5 % (21.0-51.0); MEAN CORPUSCULAR HEMOGLOBIN 30.2 pg (27.0-33.0); MEAN CORPUSCULAR HGB CONC 32.3 g/dL (32.0-36.0); MEAN CORPUSCULAR VOLUME 93.3 fL (79-99); MONOCYTES # (AUTO) 0.6 K/uL (0.1-1.0); MONOCYTES % (AUTO) 7.4 % (3.0-13.0); NEUTROPHILS # (AUTO) 6.1 K/uL (1.8-7.7); NEUTROPHILS % (AUTO) 73.7 % (40.0-77.0); PLATELET COUNT (AUTO) 156 K/uL (130-400); RED BLOOD CELL COUNT(AUTO) 4.31 MIL/uL (4.00-5.50); RED CELL DISTRIBUTION WIDTH 13.2 % (11.0-15.5); WHITE BLOOD COUNT (AUTO) 8.3 K/uL (4.8-10.8)
[2024-10-06] MEDS: ondanSETRON 4MG INJ IVP ONE (05:01)
[2024-10-06] MEDS: ketOROlac 15MG/ML VIAL (15MG/ML) IV ONE (05:01)
[2024-10-06] MEDS: LACTATED RINGERS 1000ML 1,000 ML IV ONE (05:02)
[2024-10-06] MEDS: DIPHENOXYLATE HCL/ATROPINE 2.5/0.025 MG TAB PO ONE (07:00)
--- NOTE | 2024-10-06 07:00 | NUR ---
Patient stated she has not been able to void since 0. Bladder scanner showed 7cc of urine. No lower abdominal pain, no abdominal distention. I notified Dr. Goodrich ( view orders)
[2024-10-06 08:06] LABS: ALBUMIN 3.5 g/dL (3.5-5.0); BILIRUBIN,DIRECT 0.1 mg/dL (0.0-0.3); BILIRUBIN,TOTAL 0.5 mg/dL (0.2-1.0)
--- NOTE | 2024-10-06 09:19 | NUR ---
Home medication in patients chart.
[2024-10-06 11:38] LABS: APPEARANCE,URINE CLEAR (CLEAR); BILIRUBIN,URINE NEGATIVE (NEGATIVE); COLOR,URINE LIGHT-YELLOW (YELLOW); GLUCOSE, URINE (UA) >=1000 mg/dL (NEGATIVE); KETONES,URINE NEGATIVE (NEGATIVE); LEUKOCYTE ESTERASE ,URINE 25 Leu/uL (NEGATIVE); NITRATE,URINE NEGATIVE (NEGATIVE); PROTEIN,URINE 100 mg/dL (NEGATIVE); UROBILINOGEN,URINE 0.2 mg/dL (0.2-1.0)
[2024-10-06 11:41] LABS: ADD UA MICROSCOPIC YES
[2024-10-06 11:42] LABS: MUCUS,URINE RARE LPF (None Seen); SQUAMOUS EPITHELIAL CELL,UR FEW /HPF (0-2)
[2024-10-06] MEDS ORDERED: LACT1TAB26 PO (11:50)
[2024-10-06] MEDS ORDERED: CEPH500B PO (11:50)
[2024-10-06] MEDS ORDERED: PANT40TA55 PO (11:50)
[2024-10-06 12:00] VITALS: BP 160/70; PULSE 72; RESP 14; TEMP 98.1; O2SAT 100
== END 2024-10-06 13:00 | disposition home or self-care (01) ==
LOC: EDH 04:26
DX: N39.0 Urinary tract infection, site not specified (principal); R19.7 Diarrhea, unspecified; E11.9 Type 2 diabetes mellitus without complications; E78.00 Pure hypercholesterolemia, unspecified; I10 Essential (primary) hypertension; Z79.01 Long term (current) use of anticoagulants; Z79.4 Long term (current) use of insulin; Z79.84 Long term (current) use of oral hypoglycemic drugs; Z79.899 Other long term (current) drug therapy; Z90.49 Acquired absence of other specified parts of digestive tract; Z98.890 Other specified postprocedural states
CPT/HCPCS: 99284; 96374; 96375; 80076; 80048; 85025; 87086; 81001; 36415; J1885; J7120; J2405

== ENCOUNTER 2024-10-17 17:14 | Emergency (ER) | payer OTHER, MEDICARE ==
[~2024-10-17] VITALS: Ht 152.4 cm; Wt 58.5 kg
[~2024-10-17 17:14] MED LIST changes: +CEPH500B PO; +LACT1TAB26 PO; +PANT40TA55 PO
--- NOTE | 2024-10-17 17:46 | EKG ---
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
[2024-10-17 17:48] LABS: ADD UA MICROSCOPIC YES; APPEARANCE,URINE CLOUDY (CLEAR); BILIRUBIN,URINE NEGATIVE (NEGATIVE); COLOR,URINE LIGHT-YELLOW (YELLOW); GLUCOSE, URINE (UA) 500 mg/dL (NEGATIVE); KETONES,URINE 5 mg/dL (NEGATIVE); LEUKOCYTE ESTERASE ,URINE 250 Leu/uL (NEGATIVE); NITRATE,URINE NEGATIVE (NEGATIVE); PH,URINE 8.5 (5.0-8.0); PROTEIN,URINE 300 mg/dL (NEGATIVE); UROBILINOGEN,URINE 0.2 mg/dL (0.2-1.0)
[2024-10-17 17:51] LABS: BACTERIA,URINE RARE /HPF (None Seen); MUCUS,URINE RARE LPF (None Seen); SQUAMOUS EPITHELIAL CELL,UR FEW /HPF (0-2); WBC,URINE 51-100 /HPF (0-1)
[2024-10-17] MEDS: PANTOPrazole 40 MG/VIAL IVP ONE (17:58)
[2024-10-17] MEDS: ondanSETRON 4MG INJ IVP ONE (17:58)
[2024-10-17] MEDS: 0.9%NACL 1000ML 1,000 ML IV ONE (17:58)
[2024-10-17 18:02] LABS: BASOPHILS # (AUTO) 0.05 K/uL (0.00-0.20); BASOPHILS % (AUTO) 0.8 % (0.0-5.0); EOSINOPHILS # (AUTO) 0.08 K/uL (0.00-0.70); EOSINOPHILS % (AUTO) 1.3 % (0.0-8.0); HEMATOCRIT 40.3 % (36-48); IMMATURE GRANULOCYTE ABSOLUTE 0.01 K/uL (0-1); LYMPHOCYTES # (AUTO) 1.3 K/uL (1.0-4.8); LYMPHOCYTES % (AUTO) 19.7 % (21.0-51.0); MEAN CORPUSCULAR HEMOGLOBIN 30.5 pg (27.0-33.0); MEAN CORPUSCULAR HGB CONC 32.5 g/dL (32.0-36.0); MEAN CORPUSCULAR VOLUME 93.7 fL (79-99); MONOCYTES # (AUTO) 0.4 K/uL (0.1-1.0); MONOCYTES % (AUTO) 5.7 % (3.0-13.0); NEUTROPHILS # (AUTO) 4.6 K/uL (1.8-7.7); NEUTROPHILS % (AUTO) 72.3 % (40.0-77.0); PLATELET COUNT (AUTO) 168 K/uL (130-400); RED CELL DISTRIBUTION WIDTH 13.6 % (11.0-15.5); WHITE BLOOD COUNT (AUTO) 6.4 K/uL (4.8-10.8)
--- NOTE | 2024-10-17 18:04 | ERN ---
ED Note History of Present Illness Stated Complaint: NAUSEA,VOMITING,AND WEAKNESS Chief Complaint: Nausea,Vomiting,Diarrhea Time Seen by MD: 17:19 Time Seen by Midlevel: 17:19 Dictation: The patient is a 74-year-old female with a history of hypertension, diabetes, hyperlipidemia who presents to the emergency department with complaints of nausea nonbloody vomiting onset yesterday. Patient denies any diarrhea denies constipation denies abdominal pain or fevers. Allergies: Coded Allergies: No Known Drug Allergies (Unverified Allergy, 03/21/12) Uncoded Allergies: NKA (Allergy, 01/19/12) Home Meds Active Scripts Ondansetron (Ondansetron Odt) 4 Mg Tab.rapdis, 4 MG PO Q6HPRN PRN for nausea, #16 TAB 0 Refills Prov:GUCCI GIBBONS 10/17/24 Nitrofurantoin Monohyd/M-Cryst (Macrobid 100 mg Capsule) 100 Mg Capsule, 1 CAP PO BID for 5 Days, #10 CAP 0 Refills Prov:GUCCI GIBBONS 10/17/24 Cephalexin Monohydrate (Keflex) 500 Mg Cap, 1 CAP PO BID for 10 Days, #20 CAP 0 Refills Prov:LISA WALKER MD 10/06/24 Pantoprazole Sodium (Protonix) 40 Mg Ectab, 1 TAB PO DAILY for 30 Days, #30 TAB 0 Refills Prov:LISA WALKER MD 10/06/24 Lactobacillus Acidophilus (Probiotic Acidophilus) 2 Billion Cell Tablet, 1 TAB PO BID for 7 Days, #14 TAB 0 Refills Prov:LISA WALKER MD 10/06/24 Nitrofurantoin Monohyd/M-Cryst (Macrobid 100 mg Capsule) 100 Mg Capsule, 1 CAP PO BID for 5 Days, #10 CAP 0 Refills Prov:MELANI GIBBONS MD 04/24/24 Ibuprofen (Ibuprofen) 600 Mg Tablet, 600 MG PO Q6H PRN for PAIN, #20 TAB 0 Refills Prov:ALEX BONNER 08/22/23 Cephalexin (Cephalexin) 500 Mg Capsule, 500 MG PO Q6H, #56 CAP Prov:GEORGINA ARCE MD 03/14/23 Cyclobenzaprine HCl (Flexeril) 10 Mg Tab, 10 MG PO TID for 3 Days, #9 TAB Prov:GIANFRANCO NICHOLS V IUSS ANALYST 07/30/22 Insulin Degludec (Tresiba) 100 Unit/1 Ml Vial, 10 UNIT SQ DAILY for 30 Days, #1 VIAL Prov:JR BELTRE CARTOGRAPHIC TECHNICIAN 07/02/22 Reported Medications Apixaban (Eliquis) 5 Mg Tablet, 5 MG PO DAILY, TAB 07/01/22 Empagliflozin (Jardiance) 25 Mg Tablet, 25 MG PO DAILY, TAB 07/01/22 Rosuvastatin Calcium (Rosuvastatin Calcium) 40 Mg Tablet, 1 TAB PO DAILY 07/01/22 Lisinopril (Lisinopril) 5 Mg Tablet, 1 TAB PO DAILY 07/01/22 Metoprolol Tartrate (Lopressor) 25 Mg Tab, 1 TAB PO BID 07/01/22 Past Medical History Past Medical History: Diabetes-Type II, High Cholesterol, Hypertension Additional Past Medical Hx: POOIR HISTORIAN Surgical History: Cholecystectomy, Surgical History Other: BLADDER SUSPENSION, NECK, LEFT ARM Social History: Negative, Lives with family History: Not Applicable RN Note Reviewed/Agreed w/PFSH: Yes Review of System Dictation Constitutional: Negative for fever,chills, and weight loss Eyes: Negative for injury, pain,redness, and discharge ENT: Negative for injury,pain or swelling Cardiovascular: Negative for chest pain, palpitations, and edema Respiratory: Negative for shortness of breath, cough, and wheezing, Abdomen/GI: Negative for abdominal pain, diarrhea, and constipation positive for nausea and vomiting Back: Negative for injury and pain : Negative for injury, bleeding and discharge MS/Extremity: Negative for injury and deformity Skin: Negative for rash, and discoloration Neuro: Negative for headache, weakness, numbness, tingling, and seizure Psych: Negative for suicide ideation, homicidal ideation, and hallucinations Initial Vital Sign VS Vital Signs Date Time Temp Pulse Resp B/P (MAP) Pulse Ox O2 Delivery O2 Flow Rate FiO2 10/17/24 17:16 97.7 88 20 165/75 99 10/17/24 17:30 Room Air* 0 21 Physical Exam Dictation Vital Signs reviewed General Appearance: Alert, oriented x 3, no acute distress, well developed, nourished. Head and Face: non-traumatic. Eyes: PERRL, pink conjunctivas, eyelid no trauma, anterior chamber with arcus senilis. Ears: Pinnas intact and no signs of trauma or erythema ear canals clear and no discharge TM no erythema Nose: No discharge, no bleeding. Oropharynx: Mouth normal, tongue pink. pharynx clear,no erythema, tonsils no exudates, no abscesses noted, mucous membrane moist Neck: Supple, non-tender, no thyromegaly, no masses, no JVD, no bruits Breast:Deferred Chest:No tenderness, no crepitus, no paradoxical movement, no retractions Lungs:Clear, well-ventilated, symmetric, no rales, no wheezing, no rhonchi, no stridor, good breath sounds bilaterally Heart: Regular rate, regular rhythm, no murmur, no gallops Vascular: no peripheral edema, Abdomen: Soft, positive bowel sounds, nondistended, no guarding, nontender, no rebound, no masses no hepatomegaly, no splenomegaly, no Shi's sign, no hernias. Rectal: Deferred Genital: Deferred Neurological: Normal speech, motor function intact, sensory function intact Musculoskeletal: Neck nontender, full range of motion, back nontender, full range of motion, Extremities: nontender, full range of motion Skin: Color pink, dry, no turgor, no rash, no lacerations, no abrasions, no contusions. Lymphatic: Deferred Results (Laboratory/Radiology) Laboratory/Radiology Labs Reviewed?: Yes EKG: (+) rhythm (Sinus rhythm) EKG Comment: Date:10/17/2024 Time:1743 Ventricular rate:88 MD interval:172 QRS duration:80 QT/QTc:398 EKG interpretation: Sinus rhythm Reviewed by ED Attending no STEMI ED Course ED Course Medical Decision Making MDM The patient is a 74-year-old female with a history of hypertension, diabetes, hyperlipidemia who presents to the emergency department with complaints of na usea nonbloody vomiting onset yesterday. Patient denies any diarrhea denies constipation denies abdominal pain or fevers. CBC showed no leukocytosis, no anemia, chemistry showed no electrolyte imbalance, negative troponin, negative lipase, urinalysis positive for leukocyte esterase. Patient will be treated with antibiotics. Patient reports no abdominal pain, no headache no chest pain. Blood pressure slightly elevated but patient states she forgot to take her blood pressure medication. Patient neurologically intact in no acute distress will be discharged to follow up with primary doctor. Differential diagnosis: Gastritis, gastroenteritis, dehydration, electrolyte imbalance, ACS Need for hospitalization: Patient does not meet criteria for hospitalization. There are no social concerns with this patient. DX & DISP Disposition: Discharge Departure Impression: Primary Impression: UTI (urinary tract infection) Additional Impression: Nausea & vomiting Condition: Stable Scripts Ondansetron (Ondansetron Odt) 4 Mg Tab.rapdis 4 MG PO Q6HPRN PRN for nausea, #16 TAB 0 Refills Prov: [facility] 10/17/24 Nitrofurantoin Monohyd/M-Cryst (Macrobid 100 mg Capsule) 100 Mg Capsule 1 CAP PO BID for 5 Days, #10 CAP 0 Refills Prov: [facility] 10/17/24 Additional Instructions: Please follow up with your primary doctor in 1-2 days. Take medications as prescribed. If symptoms worsen please return to ER. FOLLOW-UP WITH PRIMARY CARE PROVIDER IN 1 TO 2 DAYS. TAKE MEDICATIONS DIRECTED HERE IN THE EMERGENCY ROOM. OKAY TO CONTINUE HOME MEDICATIONS UNLESS OTHERWISE DISCUSSED DURING YOUR VISIT IN THE EMERGENCY ROOM TODAY. RETURN TO YOUR NEAREST EMERGENCY ROOM IF SYMPTOMS WORSEN OR IF THERE IS NO IMPROVEMENT. CALL 911 IF YOU NEED IMMEDIATE ASSISTANCE. TAKE TYLENOL OR MOTRIN [id number] NEEDED AND IF NO CONTRAINDICATIONS ARE PRESENT. INCREASE ORAL HYDRATION. A WOUND CULTURE OR URINE CULTURE WAS ORDERED HERE IN THE EMERGENCY ROOM DEPARTMENT PLEASE FOLLOW-UP WITH PRIMARY CARE PROVIDER AND ADVISE THEM TO GET REPEAT PORTS FROM OUR FACILITY. IF YOU HAD ANY CORAL WRAP/SPLINTS THAT WERE APPLIED HERE, PLEASE DO NOT REMOVE THEM UNTIL YOU SEE YOUR PRIMARY CARE OR SPECIALTY. Referrals: GABRIELLE MALAGON DO (PCP) Time of Disposition: 18:56 I have reviewed the case, and I agree with, Diagnosis and Plan I performed the substantive portion of the visit. I have reviewed and personally made and approve the management plan that is documented in the notes by myself or the KALA. I acknowledge full responsibility for the patient's management plan. GUCCI GIBBONS Oct 17, 2024 18:04 TYREE HERNANDEZ MD Oct 21, 2024 15:03
[2024-10-17 18:16] LABS: CREATININE 0.7 mg/dL (0.5-1.0); POTASSIUM 4.4 mmol/L (3.5-5.1)
[2024-10-17 18:20] LABS: BILIRUBIN,DIRECT 0.1 mg/dL (0.0-0.3); BILIRUBIN,TOTAL 0.6 mg/dL (0.2-1.0); MAGNESIUM 2.1 mg/dL (1.80-2.40); TOTAL PROTEIN, SERUM 7.2 g/dL (6.0-8.3)
[2024-10-17] MEDS: cefTRIAXone 1G VIAL IVPB ONE (18:31)
[2024-10-17] MEDS: hydrALAZine 20MG/ML VIAL IV ONE (18:31)
[2024-10-17] MEDS ORDERED: ONDA-243 PO (18:56)
[2024-10-17 19:25] VITALS: BP 142/64; PULSE 90; RESP 17; TEMP 97.8; O2SAT 99
== END 2024-10-17 19:40 | disposition home or self-care (01) ==
LOC: EDH 17:14
DX: N39.0 Urinary tract infection, site not specified (principal); R11.2 Nausea with vomiting, unspecified; E11.9 Type 2 diabetes mellitus without complications; E78.00 Pure hypercholesterolemia, unspecified; Z79.01 Long term (current) use of anticoagulants; Z79.4 Long term (current) use of insulin; Z79.84 Long term (current) use of oral hypoglycemic drugs; Z79.899 Other long term (current) drug therapy; Z90.49 Acquired absence of other specified parts of digestive tract
CPT/HCPCS: 99284; 96365; 96375; 82550; 80076; 83735; 84484; 80048; 83690; 85025; 87086 ×2; 87186; 81001; 36415; 93005; J7030; J0360; J0696; J2405; J2470

== ENCOUNTER 2024-10-17 23:10 | Emergency (ER) | payer OTHER, MEDICARE ==
[~2024-10-17] VITALS: Ht 160 cm; Wt 58.5 kg
[~2024-10-17 23:10] MED LIST changes: +ONDA-243 PO
--- NOTE | 2024-10-17 23:31 | ERN ---
General Chief Complaint: Abdominal Pain Stated Complaint: C/O ABD PAIN WITH N X V ONSET YESTERDAY Time Seen by MD: 23:23 Source: patient, family History of Present Illness Initial Comments This is a 74-year-old female with two days of nausea vomiting and abdominal pain. She was seen here earlier today and an extensive workup showed no electrolyte abnormalities no cardiac enzyme problem no leukocytosis. Patient's urine was esterase positive. She was given antibiotics and discharged. Patient comes back feeling weak lightheaded and still with dry heaves. Allergies: Coded Allergies: No Known Drug Allergies (Unverified Allergy, 03/21/12) Uncoded Allergies: NKA (Allergy, 01/19/12) Home Meds Active Scripts Ondansetron (Ondansetron Odt) 4 Mg Tab.rapdis, 4 MG PO Q6HPRN PRN for nausea, #16 TAB 0 Refills Prov:GUCCI GIBBONS 10/17/24 Nitrofurantoin Monohyd/M-Cryst (Macrobid 100 mg Capsule) 100 Mg Capsule, 1 CAP PO BID for 5 Days, #10 CAP 0 Refills Prov:GUCCI GIBBONS 10/17/24 Cephalexin Monohydrate (Keflex) 500 Mg Cap, 1 CAP PO BID for 10 Days, #20 CAP 0 Refills Prov:LISA WALKER MD 10/06/24 Pantoprazole Sodium (Protonix) 40 Mg Ectab, 1 TAB PO DAILY for 30 Days, #30 TAB 0 Refills Prov:LISA WALKER MD 10/06/24 Lactobacillus Acidophilus (Probiotic Acidophilus) 2 Billion Cell Tablet, 1 TAB PO BID for 7 Days, #14 TAB 0 Refills Prov:LISA WALKER MD 10/06/24 Nitrofurantoin Monohyd/M-Cryst (Macrobid 100 mg Capsule) 100 Mg Capsule, 1 CAP PO BID for 5 Days, #10 CAP 0 Refills Prov:MELANI GIBBONS MD 04/24/24 Ibuprofen (Ibuprofen) 600 Mg Tablet, 600 MG PO Q6H PRN for PAIN, #20 TAB 0 Refills Prov:ALEX BONNER 08/22/23 Cephalexin (Cephalexin) 500 Mg Capsule, 500 MG PO Q6H, #56 CAP Prov:GEORGINA ARCE MD 03/14/23 Cyclobenzaprine HCl (Flexeril) 10 Mg Tab, 10 MG PO TID for 3 Days, #9 TAB Prov:SIMONEGIANFRANCO Abdulaziz GAS JOCKEY 07/30/22 Insulin Degludec (Tresiba) 100 Unit/1 Ml Vial, 10 UNIT SQ DAILY for 30 Days, #1 VIAL Prov:SNYDERELAINACONNELL,JR John WHEELCHAIR DRIVER 07/02/22 Reported Medications Apixaban (Eliquis) 5 Mg Tablet, 5 MG PO DAILY, TAB 07/01/22 Empagliflozin (Jardiance) 25 Mg Tablet, 25 MG PO DAILY, TAB 07/01/22 Rosuvastatin Calcium (Rosuvastatin Calcium) 40 Mg Tablet, 1 TAB PO DAILY 07/01/22 Lisinopril (Lisinopril) 5 Mg Tablet, 1 TAB PO DAILY 07/01/22 Metoprolol Tartrate (Lopressor) 25 Mg Tab, 1 TAB PO BID 07/01/22 Past Medical History Past Medical History: Unknown Medical History Other: POOIR HISTORIAN Past Surgical History: Unknown Surgical History Other: BLADDER SUSPENSION, NECK, LEFT ARM, gallbladder, c- sections Social History Social History: Negative, Lives with family Female( History) History: Not Applicable Constitutional: (-) chills, (-) diaphoresis, (-) fever, (-) malaise, (-) weakness, (-) other documentation EENTM: (-) eye pain, (-) blurred vision, (-) tearing, (-) double vision, (-) ear pain, (-) ear discharge, (-) nose pain, (-) nose congestion, (-) throat pain, (-) Throat swelling, (-) mouth pain, (-) tooth pain, (-) mouth swelling, (-) other documentation Respiratory: (-) cough, (-) orthopnea, (-) short of breath, (-) stridor, (-) wheezing, (-) other documentation Cardiovascular: (-) chest pain, (-) edema, (-) palpitations, (-) syncope, (-) dyspnea on exertion, (-) other documentation Gastrointestinal/Abdominal: (+) nausea, (+) vomiting, (+) abdominal pain Genitourinary: (-) vaginal discharge, (-) vaginal bleeding, (-) dysuria, (-) frequency, (-) hematuria, (-) pain, (-) other documentation Musculoskeletal: (-) Neck pain, (-) back pain, (-) Flank Pain, (-) joint pain, (-) joint swelling, (-) muscle pain, (-) muscle stiffness, (-) gout, (-) other documentation Skin: (-) laceration, (-) contusion, (-) abrasion, (-) abscess, (-) rash, (-) change in color, (-) change in hair, (-) change in nails, (-) diaphoresis, (-) dryness, (-) other documentation Neuro: (-) altered mental status, (-) headache, (-) syncope, (-) paralysis, (-) numbness, (-) seizure, (-) pre-existing deficit, (-) tremors, (-) weakness, (-) dizziness, (-) slurred speech, (-) vertigo, (-) other documentation Physical Exam General Appearance: (+) moderate distress Orientation: (+) alert Head/Face Trauma: No Eye: bilateral eye normal inspection, bilateral eye PERRL, bilateral eye EOMI Ear, Nose, Throat: (+) hearing grossly normal, (+) normal ENT inspection Neck: (+) normal inspection, (+) supple, (+) no JVD Respiratory: (+) chest non-tender, (+) lungs clear, (+) well ventilated Heart: (+) regular Vascular: (+) no edema Vascular Comment Peripheral pulses are weak. Results Laboratory and Microbiology Lab and Micro Result Laboratory Tests Test 10/18/24 00:07 10/18/24 04:44 10/18/24 05:51 White Blood Count 14.0 K/uL (4.8-10.8) #H Red Blood Count 4.14 MIL/uL (4.00-5.50) Hemoglobin 12.6 g/dL (12.0-16.0) Hematocrit 39.5 % (36-48) Mean Corpuscular Volume 95.4 fL (79-99) Mean Corpuscular Hemoglobin 30.4 pg (27.0-33.0) Mean Corpuscular Hemoglobin Concent 31.9 g/dL (32.0-36.0) L Red Cell Distribution Width 13.5 % (11.0-15.5) Platelet Count 153 K/uL (130-400) Mean Platelet Volume 11.0 fL (7.5-10.5) H Segmented Neutrophils % 92 % (40-70) H Band Neutrophils % 2 % (0-2) Lymphocytes % (Manual) 3 % (22-44) L Monocytes % (Manual) 3 % (2-9) Nucleated Red Blood Cells 0.0 % (0.0-0.19) Differential Comment MANUAL DIFFERENTIAL White Cell Morphology Comment Platelet Morphology Comment See comments Red Blood Cell Morphology ANISO 1+ Sodium Level 138 mmol/L (136-145) Potassium Level 3.9 mmol/L (3.5-5.1) Chloride Level 101 mmol/L (101-111) Carbon Dioxide Level 28 mmol/L (21-32) Blood Urea Nitrogen 20 mg/dL (7-18) H Creatinine 1.0 mg/dL (0.5-1.0) Glomerular Filtration Rate Calc 60 mL/min (>90) Random Glucose 304 mg/dL (70-105) #H Total Calcium 8.9 mg/dL (8.5-10.1) Whole Blood Ketones Quantitative 0.2 mmol/L (0.0-0.6) Whole Blood Glucose 153 MG/DL (70-110) H MDM Patient comes back with intractable nausea and vomiting. I suspect she is still very dehydrated. I will get orthostatic vital signs. I will start bolusing her with some fluid. I will give her some Zofran. I do not see a need to repeat her laboratory studies. I will get a KUB to rule out SBO. Orders written at 11:37 p.m. Unfortunately patient's KUB was unremarkable there is a paucity of gas throughout her entire intestinal tract maybe a little bit in her distal small bowel and but none in her colon. She was not able to tolerate the GI cocktail despite being given Zofran. She has not received her full 200 cc so far. While it would be nice if the patient was simply dehydrated I feel I need to repeat her labs from earlier today and do a CT scan of her abdomen and pelvis. So laboratory analysis shows a increase in her white blood cell count, an increase in her blood sugar to 300, a decrease in her bicarb mild. I will order a ketone levels in her blood and a UA. I will also give her insulin. Ketones are negative. CT scan of her abdomen was negative. After 20 units of regular insulin her blood sugar is now 150. Patient says she feels much better now fact she slept for the last 3 hours. Maybe it was just dehydration after all in either case she feels better and would like to go home. ED Course Orders Procedure Category Date Status Time O2 Nc Keep Sats CPOE 10/17/24 Transmitted Greater 92% 23:37 Lactated Ringers PHA 10/18/24 Complete 1000ml (Lactated 00:00 Ondansetron 4mg Inj PHA 10/18/24 Complete (Zofran 4mg Inj) 00:00 Lidocaine Hcl 2% PHA 10/18/24 Complete Viscous (Lidocaine Hcl 00:00 Mag/Alum/Simeth 30ml PHA 10/18/24 Complete (Maalox Plus 30ml) 00:00 Dicyclomine Hcl PHA 10/18/24 Complete (Bentyl 10mg/5ml 00:00 Abd 1vw RAD 10/17/24 Resulted 23:37 Orthostatic Vital CPOE 10/18/24 Transmitted Signs 01:39 Ondansetron 4mg Inj PHA 10/18/24 Complete (Zofran 4mg Inj) 02:00 Ct Abdomen/Pelvis CT 10/18/24 Taken W/Contrast 01:48 Cbc W Manual Diff LAB 10/18/24 Complete 01:56 Basic Metabolic Panel LAB 10/18/24 Complete 01:56 Ketone Blood LAB 10/18/24 Complete Quantitative 02:40 Urinalysis Profile LAB 10/18/24 Logged 02:40 Insulin Regular, PHA 10/18/24 Complete Human 3ml (Humulin R 02:43 Iohexol (Omnipaque) PHA 10/18/24 Complete 02:56 Bedside Glucose CPOE 10/18/24 Transmitted Fingerstick 05:13 Current Medications Medications (Trade) Dose Ordered Sig/Elda Route PRN Reason Start Time Stop Time Status Last Admin Dose Admin Al Hydroxide/Mg Hydroxide (MAALox PLUS 30ML) 30 ml ONCE ONCE PO 10/18/24 00:00 10/18/24 00:01 DC 10/18/24 01:05 Dicyclomine HCl (Bentyl 10mg/5ml Syrup) 10 mg ONCE ONCE PO 10/18/24 00:00 10/18/24 00:01 DC 10/18/24 01:06 Insulin Human Regular (humuLIN R 100 UNIT/ML 3ML) 15 unit ONCE STAT SQ 10/18/24 02:43 10/18/24 02:49 DC 10/18/24 02:56 Iohexol (Omnipaque) 35,000 mg STK-MED ONCE IV 10/18/24 02:56 10/18/24 02:56 DC Lactated Ringer's 1,000 ml @ 0 mls/hr ONCE ONCE IV 10/18/24 00:00 10/18/24 00:01 DC 10/18/24 01:06 Lidocaine HCl (Lidocaine HCl 2% Viscous) 10 ml ONCE ONCE PO 10/18/24 00:00 10/18/24 00:01 DC 10/18/24 01:06 Ondansetron HCl (zoFRAN 4MG INJ) 4 mg ONCE ONCE IVP 10/18/24 00:00 10/18/24 00:01 DC 10/18/24 01:06 Ondansetron HCl (zoFRAN 4MG INJ) 4 mg ONCE ONCE IVP 10/18/24 02:00 10/18/24 02:01 DC 10/18/24 02:55 Vital Signs Date Time Temp Pulse Resp B/P (MAP) Pulse Ox O2 Delivery O2 Flow Rate FiO2 10/18/24 05:58 97.0 70 20 115/58 100 Room Air* 0 21 10/18/24 03:38 97.0 73 20 115/70 100 Room Air* 0 21 10/18/24 01:27 97.0 75 20 103/72 100 Room Air* 0 21 10/18/24 00:18 97.0 83 20 142/75 100 Room Air* 0 21 10/17/24 23:12 96.6 79 24 154/123 98 Room Air DX & DISP Disposition: Discharge Departure Impression: Primary Impression: Nausea & vomiting Additional Impression: Hyperglycemia due to diabetes mellitus Condition: Stable Additional Instructions: Please return if you have the blood sugars rising out of control and if you have recurrence of intractable nausea and vomiting. Referrals: GABRIELLE MALAGON DO (PCP) TRIP LEONARDO MD Oct 17, 2024 23:31
--- NOTE | 2024-10-18 00:28 | HMCIMG ---
ABD 1VW HISTORY: Small bowel obstruction COMPARISON: None FINDINGS: A frontal projection of the abdomen was obtained. Gastric distention is seen. Post cholecystectomy changes are seen. A nonspecific bowel gas pattern is seen. Fecal material is seen in the colon. Degenerative changes of the thoracolumbar spine are noted. IMPRESSION: 1. A nonspecific bowel gas pattern is seen.
[2024-10-18] MEDS: MAG/ALUM/SIMETH 30 ML UDCUP PO ONE (01:05)
[2024-10-18] MEDS: DICYCLOMINE HCL 10 MG/5 ML ML PO ONE (01:06)
[2024-10-18] MEDS: ondanSETRON 4MG INJ IVP ONE ×2 (01:06→02:55)
[2024-10-18] MEDS: LACTATED RINGERS 1000ML 1,000 ML IV ONE (01:06)
[2024-10-18] MEDS: LIDOCAINE HCL 2% VISCOUS 15 ML UDCUP PO ONE (01:06)
[2024-10-18 02:02] LABS: HEMATOCRIT 39.5 % (36-48); MEAN CORPUSCULAR HEMOGLOBIN 30.4 pg (27.0-33.0); MEAN CORPUSCULAR HGB CONC 31.9 g/dL (32.0-36.0); MEAN CORPUSCULAR VOLUME 95.4 fL (79-99); PLATELET COUNT (AUTO) 153 K/uL (130-400); RED BLOOD CELL COUNT(AUTO) 4.14 MIL/uL (4.00-5.50); RED CELL DISTRIBUTION WIDTH 13.5 % (11.0-15.5)
[2024-10-18 02:13] LABS: POTASSIUM 3.9 mmol/L (3.5-5.1)
[2024-10-18 02:46] LABS: BAND NEUTROPHILS % (MANUAL) 2 % (0-2); LYMPHOCYTES % (MANUAL) 3 % (22-44); MAN.DIFF COMMENT-IMPRESSION MANUAL DIFFERENTIAL; MONOCYTES % (MANUAL) 3 % (2-9); SEGMENTED NEUTROPHILS % 92 % (40-70); TOTAL CELLS COUNTED 100
[2024-10-18] MEDS: INSULIN humuLIN R 100 UNIT/ML 3ML SQ STA (02:56)
[2024-10-18] MEDS ORDERED: IOHEXOL 350 MG/ML 100ML INFUS..BTL IV ONE (02:56)
[2024-10-18 05:58] VITALS: BP 115/58; PULSE 70; RESP 20; TEMP 97; O2SAT 100
--- NOTE | 2024-10-18 09:34 | HMCIMG ---
CT ABDOMEN/PELVIS W/CONTRAST HISTORY: Small bowel obstruction COMPARISON: None TECHNIQUE: Multiple sequential axial images of the abdomen and pelvis were obtained from the dome of the diaphragm through symphysis pubis. Patient was given 100 cc of Omnipaque through intravenous route. Oral contrast was not given. FINDINGS: No pleural effusion is seen bilaterally. There is no evidence of parenchymal disease or pulmonary nodule of the visualized lower lungs. Degenerative changes of the thoracolumbar spine are present. The heart is not enlarged. Liver measured 13 cm. Postcholecystectomy changes are seen. The liver, spleen, adrenal glands and pancreas are unremarkable. There is no evidence of hydronephrosis bilaterally. No evidence of renal stone is seen. Fecal material is seen in the colon. There are normal size retroperitoneal and mesenteric lymph nodes. No ascites is seen. Atherosclerotic changes are present. There is thickened distal small bowel loops and colon may be related to ileocolitis versus inflammatory bowel disease. Clinical correlation is recommended. Pelvic sidewalls are symmetric bilaterally. Bladder is moderately distended. Dystrophic calcification is seen in the left pelvis. Bladder wall thickening is seen may be related to cystitis. Urinalysis correlation may be helpful. IMPRESSION: 1. There is thickened distal small bowel loops and colon may be related to ileocolitis versus inflammatory bowel disease. Clinical correlation is recommended. CT was performed with one or more following dose reduction techniques: automated exposure control, adjustment of the mA and kv according to patient's size, or use of a iterative reconstruction technique.
== END 2024-10-18 06:13 | disposition home or self-care (01) ==
LOC: EDH 23:10
DX: E11.65 Type 2 diabetes mellitus with hyperglycemia (principal); R11.2 Nausea with vomiting, unspecified; Z79.01 Long term (current) use of anticoagulants; Z79.4 Long term (current) use of insulin; Z79.84 Long term (current) use of oral hypoglycemic drugs; Z79.899 Other long term (current) drug therapy
CPT/HCPCS: 99284; 99285; 82550; 80076; 83735; 84484; 80048 ×2; 83690; 85025 ×2; 87086 ×2; 87186; 82948; 82010; 81001; 36415 ×2; 74018; 96365; 96375 ×2; 93005; 96372; 96374; 74177; J7030; J0360; J0696; J2405 ×3; J2470; J1815; J7120; Q9967; 96361

== ENCOUNTER 2025-01-14 20:36 | Emergency (ER) | payer OTHER ==
[~2025-01-14] VITALS: Ht 160 cm; Wt 60.8 kg
--- NOTE | 2025-01-14 21:00 | ERN ---
ED Note History of Present Illness Stated Complaint: C/O HIGH B/P Chief Complaint: Hypertension Time Seen by MD: 20:41 Dictation: PATIENT IS A 74-YEAR-OLD FEMALE COMING IN TODAY WITH COMPLAINTS OF ELEVATED BLOOD PRESSURE. SHE HAS NO CHEST PAIN NO BACK PAIN, TRACE EDEMA TO BILATERAL LOWER EXTREMITIES. SHE TAKES SHE HAS TAKES LISINOPRIL 10 MG P.O. DAILY. ALSO STATES SHE WAS HERE LAST NIGHT AND WAS INSTRUCTED BY THE PA WHO ASSESSED, THAT HE DID NOT WANT TO INCREASE HER BLOOD PRESSURE MEDICATIONS AT THAT TIME. SHE STATES HE TOLD HER TO COME BACK TO THE EMERGENCY ROOM IF IT GOT ELEVATED AGAIN. SAID SHE IS HERE WITHOUT COMPLAINTS JUST WANTS HER BLOOD PRESSURE MANAGED ALSO STATES, THAT SHE HAS A AN APPOINTMENT WITH DR. GABRIELLE SUAREZ AT 14:00 TOMORROW. Allergies: Coded Allergies: No Known Drug Allergies (Unverified Allergy, 03/21/12) Uncoded Allergies: NKA (Allergy, 01/19/12) Home Meds Active Scripts Ondansetron (Ondansetron Odt) 4 Mg Tab.rapdis, 4 MG PO Q6HPRN PRN for nausea, #16 TAB 0 Refills Prov:GUCCI GIBBONS 10/17/24 Nitrofurantoin Monohyd/M-Cryst (Macrobid 100 mg Capsule) 100 Mg Capsule, 1 CAP PO BID for 5 Days, #10 CAP 0 Refills Prov:GUCCI GIBBONS 10/17/24 Cephalexin Monohydrate (Keflex) 500 Mg Cap, 1 CAP PO BID for 10 Days, #20 CAP 0 Refills Prov:LISA WALKER MD 10/06/24 Pantoprazole Sodium (Protonix) 40 Mg Ectab, 1 TAB PO DAILY for 30 Days, #30 TAB 0 Refills Prov:LISA WALKER MD 10/06/24 Lactobacillus Acidophilus (Probiotic Acidophilus) 2 Billion Cell Tablet, 1 TAB PO BID for 7 Days, #14 TAB 0 Refills Prov:LISA WALKER MD 10/06/24 Nitrofurantoin Monohyd/M-Cryst (Macrobid 100 mg Capsule) 100 Mg Capsule, 1 CAP PO BID for 5 Days, #10 CAP 0 Refills Prov:MELANI GIBBONS MD 04/24/24 Ibuprofen (Ibuprofen) 600 Mg Tablet, 600 MG PO Q6H PRN for PAIN, #20 TAB 0 Refills Prov:ALEX BONNER CONTINUOUS DRIER OPERATOR 08/22/23 Cephalexin (Cephalexin) 500 Mg Capsule, 500 MG PO Q6H, #56 CAP Prov:GEORGINA ARCE MD 03/14/23 Cyclobenzaprine HCl (Flexeril) 10 Mg Tab, 10 MG PO TID for 3 Days, #9 TAB Prov:GIANFRANCO NICHOLS V CONTINUOUS DRIER OPERATOR 07/30/22 Insulin Degludec (Tresiba) 100 Unit/1 Ml Vial, 10 UNIT SQ DAILY for 30 Days, #1 VIAL Prov:JR BELTRE NP 07/02/22 Reported Medications Apixaban (Eliquis) 5 Mg Tablet, 5 MG PO DAILY, TAB 07/01/22 Empagliflozin (Jardiance) 25 Mg Tablet, 25 MG PO DAILY, TAB 07/01/22 Rosuvastatin Calcium (Rosuvastatin Calcium) 40 Mg Tablet, 1 TAB PO DAILY 07/01/22 Lisinopril (Lisinopril) 5 Mg Tablet, 1 TAB PO DAILY 07/01/22 Metoprolol Tartrate (Lopressor) 25 Mg Tab, 1 TAB PO BID 07/01/22 Past Medical History Past Medical History: Diabetes-Type II, High Cholesterol, Hypertension Additional Past Medical Hx: POOIR HISTORIAN Surgical History: Cholecystectomy, Surgical History Other: LEFT ARM TUMOR, NECK TUMOR Social History: Negative, Lives with family History: Not Applicable RN Note Reviewed/Agreed w/PFSH: Yes Review of System Dictation CONSTITUTIONAL: NEGATIVE EXCEPT FOR HPI HEAD/FACE: NEGATIVE EXCEPT FOR HPI EENT: NEGATIVE EXCEPT FOR HPI RESPIRATORY: NEGATIVE EXCEPT FOR HPI GASTROINTESTINAL/ABDOMINAL: NEGATIVE EXCEPT FOR HPI GENITOURINARY: NEGATIVE EXCEPT FOR HPI MUSCULOSKELETAL: NEGATIVE EXCEPT FOR HPI INTEGUMENTARY: NEGATIVE EXCEPT FOR HPI NEUROLOGICAL/PSYCH: NEGATIVE EXCEPT FOR HPI HEMATOLOGIC/LYMPHATIC: NEGATIVE EXCEPT FOR HPI ALL SYSTEMS NEGATIVE, EXCEPT NOTED ABOVE. 13 POINT REVIEW OF SYSTEMS ASSESSED AND ALL NEGATIVE EXCEPT FOR ABOVE. Initial Vital Sign VS Vital Signs Date Time Temp Pulse Resp B/P (MAP) Pulse Ox O2 Delivery O2 Flow Rate FiO2 01/14/25 20:38 97.3 63 20 189/64 97 Room Air 01/14/25 20:46 0 21 Physical Exam Dictation VITAL SIGNS REVIEWED GENERAL APPEARANCE: ALERT, ORIENTED X 3, NO ACUTE DISTRESS, WELL DEVELOPED, NOURISHED. HEAD AND FACE: NON-TRAUMATIC. EYES: PERRL, PINK CONJUNCTIVAS, EYELID NO TRAUMA, ANTERIOR CHAMBER WITH ARCUS SENILIS. EARS: PINNAS INTACT AND NO SIGNS OF TRAUMA OR ERYTHEMA EAR CANALS CLEAR AND NO DISCHARGE TM NO ERYTHEMA NOSE: NO DISCHARGE, NO BLEEDING. OROPHARYNX: MOUTH NORMAL, TONGUE PINK, PHARYNX CLEAR,NO ERYTHEMA, TONSILS NO EXUDATES, NO ABSCESSES NOTED, MUCOUS MEMBRANE MOIST NECK: SUPPLE, NON-TENDER, NO THYROMEGALY, NO MASSES, NO JVD, NO BRUITS BREAST:DEFERRED CHEST:NO TENDERNESS, NO CREPITUS, NO PARADOXICAL MOVEMENT, NO RETRACTIONS LUNGS:CLEAR, WELL-VENTILATED, SYMMETRIC, NO RALES, NO WHEEZING, NO RHONCHI, NO STRIDOR, GOOD BREATH SOUNDS BILATERALLY HEART: REGULAR RATE, REGULAR RHYTHM, NO MURMUR, NO GALLOPS VASCULAR: TRACE PERIPHERAL EDEMA, ABDOMEN: SOFT, POSITIVE BOWEL SOUNDS, NONDISTENDED, NO GUARDING, NONTENDER, NO REBOUND, NO MASSES NO HEPATOMEGALY, NO SPLENOMEGALY, NO DECKER'S SIGN, NO HERNIAS. RECTAL: DEFERRED GENITAL: DEFERRED NEUROLOGICAL: NORMAL SPEECH, MOTOR FUNCTION INTACT, SENSORY FUNCTION INTACT MUSCULOSKELETAL: NECK NONTENDER, FULL RANGE OF MOTION, BACK NONTENDER, FULL RANGE OF MOTION, EXTREMITIES: NONTENDER, FULL RANGE OF MOTION SKIN: COLOR PINK, DRY, NO TURGOR, NO RASH, NO LACERATIONS, NO ABRASIONS, NO CONTUSIONS. LYMPHATIC: DEFERRED Results (Laboratory/Radiology) Laboratory/Radiology 2100/CURRENT BLOOD PRESSURE 164 SYSTOLIC. WE WILL GIVE PATIENT CLONIDINE 0.1 MG P.O. NO LABS OR IMAGING INDICATED THIS. ANTICIPATE INCREASING LISINOPRIL TO 20 MG DAILY PATIENT TO KEEP HER APPOINTMENT WITH PRIMARY CARE DOCTOR TOMORROW AT 14:00 HOURS. Labs Reviewed?: Yes ED Course ED Course Orders Procedure Category Date Status Time Clonidine Hcl 0.1 Mg PHA 01/14/25 In Process Tablet (Catapres 0. 21:00 Current Medications Medications (Trade) Dose Ordered Sig/Elda Route PRN Reason Start Time Stop Time Status Last Admin Dose Admin Clonidine HCl (CATApres 0.1 mg TAB) 0.1 mg ONCE PO 01/14/25 21:00 01/14/25 23:59 01/14/25 21:03 Vital Signs Date Time Temp Pulse Resp B/P (MAP) Pulse Ox O2 Delivery O2 Flow Rate FiO2 01/14/25 21:54 97.3 67 18 134/86 97 Room Air* 0 21 01/14/25 21:03 120/60 01/14/25 20:46 97.3 60 18 164/62 97 Room Air* 0 21 01/14/25 20:38 97.3 63 20 189/64 97 Room Air 2155/REPEAT BLOOD PRESSURE WOUND 34/86 AFTER CLONIDINE. PATIENT DISCHARGED HOME TOLD TO FOLLOW UP WITH HER PRIMARY CARE DOCTOR TOMORROW AT 14:00 HOURS FOR MANAGE LISINOPRIL WAS INCREASED TO 20 MG DAILY. Medical Decision Making MDM MEDICAL DECISION-MAKING BASED ON CONTROL OF BLOOD PRESSURE NOW 134/86 AFTER CLONIDINE PATIENT DISCHARGED HOME TO INCREASE HER LISINOPRIL TO 20 MG DAILY SEE HER PRIMARY CARE DOCTOR TOMORROW DX & DISP Disposition: Discharge Departure Impression: Primary Impression: Elevated blood pressure reading Condition: Stable Scripts Lisinopril (Lisinopril) 20 Mg Tablet 1 TAB PO DAILY for 30 Days, #30 TAB 0 Refills Prov: FRANCISCO ZELAYA NP 01/14/25 Additional Instructions: FOLLOW-UP WITH PRIMARY CARE PROVIDER IN 1 TO 2 DAYS. TAKE MEDICATIONS DIRECTED HERE IN THE EMERGENCY ROOM. OKAY TO CONTINUE HOME MEDICATIONS UNLESS OTHERWISE DISCUSSED DURING YOUR VISIT IN THE EMERGENCY ROOM TODAY. RETURN TO YOUR NEAREST EMERGENCY ROOM IF SYMPTOMS WORSEN OR IF THERE IS NO IMPROVEMENT. CALL 911 IF YOU NEED IMMEDIATE ASSISTANCE. TAKE TYLENOL OR MOTRIN [id number] NEEDED AND IF NO CONTRAINDICATIONS ARE PRESENT. INCREASE ORAL HYDRATION. A WOUND CULTURE OR URINE CULTURE WAS ORDERED HERE IN THE EMERGENCY ROOM DEPARTMENT PLEASE FOLLOW-UP WITH PRIMARY CARE PROVIDER AND ADVISE THEM TO GET REPEAT PORTS FROM OUR FACILITY. IF YOU HAD ANY CORAL WRAP/SPLINTS THAT WERE APPLIED HERE, PLEASE DO NOT REMOVE THEM UNTIL YOU SEE YOUR PRIMARY CARE OR SPECIALTY. INCREASE LISINOPRIL TO 20 MG DAILY STARTING TOMORROW. KEEP YOUR APPOINTMENT WITH YOUR PRIMARY CARE DOCTOR TOMORROW AT 14:00. Referrals: GABRIELLE MALAGON DO (PCP) Time of Disposition: 21:58 I have reviewed the case, and I agree with, Diagnosis and Plan FRANCISCO ZELAYA NP Jan 14, 2025 21:00
[2025-01-14 21:54] VITALS: BP 134/86; PULSE 67; RESP 18; TEMP 97.3; O2SAT 97
[2025-01-14] MEDS ORDERED: LISI20TA24 PO (21:59)
== END 2025-01-14 22:16 | disposition home or self-care (01) ==
LOC: EDH 20:36
DX: I10 Essential (primary) hypertension (principal); E11.9 Type 2 diabetes mellitus without complications; E78.00 Pure hypercholesterolemia, unspecified; Z79.01 Long term (current) use of anticoagulants; Z79.4 Long term (current) use of insulin; Z79.84 Long term (current) use of oral hypoglycemic drugs; Z79.899 Other long term (current) drug therapy; Z90.49 Acquired absence of other specified parts of digestive tract
CPT/HCPCS: 99283